=== PATIENT | female | born 1945 | race Caucasian/White ===

== ENCOUNTER → 2018-01-08 07:30 | Outpatient (CLI) | payer MEDICARE, SELFPAY ==
[2018-01-08 08:33] LABS: Add Manual Diff / Slide Review NO; Basophils Percent Auto 0.6 % (0-2); Eosinophils Percent Auto 3.3 % (2-4); Hematocrit 39.6 % (36-46); Hemoglobin 13.4 g/dL (12.0-16.0); Lymphocytes Percent Auto 40.3 % (25-40); Mean Corpuscular HGB Conc 33.9 % (30-36); Mean Corpuscular Hemoglobin 30.1 PG (26-34); Mean Corpuscular Volume 88.9 fL (80-100); Monocytes Percent Auto 9.7 % (3-14); Neutrophils Absolute Auto 2000 /uL (3000-5900); Neutrophils Percent Auto 46.1 % (50-75); Platelet Count 293 X10^3/uL (150-400); Red Blood Cell Count 4.46 X10^6/uL (4.0-5.2); White Blood Cell Count 4.3 X10^3/uL (4.5-11.0)
[2018-01-08 08:44] LABS: Alanine Aminotransferase 27 IU/L (9-52); Albumin 4.1 g/dL (3.5-5.0); Albumin Globulin Ratio 1.5 (1.0-2.8); Alkaline Phosphatase 69 U/L (38-126); Aspartate Aminotransferase 23 IU/L (14-36); BUN Creatinine Ratio 18.6 (6-22); Bilirubin Total 1.2 mg/dL (0.2-1.3); Blood Urea Nitrogen 13 mg/dL (7-17); Calcium 9.3 mg/dL (8.4-10.2); Carbon Dioxide 28 mmol/L (22-32); Chloride 105 mmol/L (98-107); Cholesterol 161 mg/dL (140-199); Estimated Glomerular Filt Rate > 60.0 mL/min (>60); Globulin 2.8 g/dL (1.7-4.1); Glucose 83 mg/dL (80-110); HDL Cholesterol 66 mg/dL (40-60); HEMOLYSIS < 15 (0-50); LDL Cholesterol Calculated 81 mg/dL (<100); Potassium 3.9 mmol/L (3.4-5.1); Sodium 143 mmol/L (137-145); Total Protein 6.9 g/dL (6.3-8.2); Triglycerides 72 mg/dL (35-150)
[2018-01-08 08:54] LABS: Hemoglobin A1C% w Est Avg Glu 5.3 % (4.0-6.0)
[2018-01-08 09:46] LABS: TSH w/ Reflex to FT4 2.91 uIU/mL (0.47-4.68)
== END ==
PROVIDERS: PCP Family Medicine; Visit Provider Family Medicine
DX: I10 Essential (primary) hypertension (principal); E78.2 Mixed hyperlipidemia; E03.9 Hypothyroidism, unspecified
CPT/HCPCS: 36415; 80053; 80061; 83036; 84443; 85025

== ENCOUNTER 2018-05-01 08:33 | Day surgery (SDC) | payer MEDICARE, SELFPAY ==
[2018-05-01 09:17] VITALS: BP 107/74; PULSE 89; RESP 15; TEMP 36.4; O2SAT 98; BMI 32.1
[2018-05-01] MEDS: SODIUM CHLORIDE 0.9% 1,000 ML 200 ML IV (09:23)
--- NOTE | 2018-05-01 10:29 | PM.HP.1 ---
History of Present Illness Date Patient Seen: 05/01/18 Time Patient Seen: 10:30 Chief complaint: colonoscopy 11446 Narrative: Very pleasant 72-year-old lady who is remarkably healthy. She presents today for screening colonoscopy. She denies any problems or symptoms related to the function of her GI tract. She reports her last colonoscopy was 10 years ago. Patient History Medical History Tinnitus (Chronic ~2007) Chicken pox (Resolved ~1948) Measles (Resolved ~1953) Surgical History Anesthesia (Resolved) History of breast implant (Resolved ~1981) History of breast implant (Resolved ~2000) History of mandibular surgery (Resolved ~1978) Status post skin graft (~1949) Family & Social History Family History: Reviewed 05/01/18 by Daisy Loving MD Social History: household members spouse Tobacco & Substance use: Smoking Status Never smoker Meds Home Medications Medication Instructions Recorded Confirmed Type ASPIRIN (Aspirin) 81 mg PO Q DAY #0 08/01/11 05/01/18 History zoster vaccine live (PF) [Zostavax 0.5 ml SQ ONCE #0.5 ml 02/12/17 05/01/18 Rx (PF)] simvastatin 20 mg tablet 20 mg PO Q DAY #90 tab 01/15/18 05/01/18 Rx varicella-zoster glycoE vacc-[id number] 0.5 ml IM ONCE #1 each 01/15/18 05/01/18 Rx adj(PF) 50 mcg/0.5 mL IM susp, kit Allergies Allergy/AdvReac Type Severity Reaction Status Date / Time No Known Drug Allergies Allergy Verified 05/01/18 09:24 Review of Systems Review of Systems All systems reviewed & are unremarkable except as noted in HPI and below Exam Vital Signs (past 8 hours): - 05/01/18 09:17 Temperature 97.5 F L Pulse Rate 89 Respiratory Rate 15 Blood Pressure 107/74 Pulse Oximetry 98 Oxygen Delivery Method Room Air Narrative Exam Narrative: Rebecca 72-year-old lady in no obvious distress HEENT: Normocephalic and atraumatic, pupils equal round reactive to light accommodation with anicteric sclera Lungs: Clear to auscultation bilaterally Heart: Regular rate and rhythm Abdomen: Soft, nontender, active bowel sounds Extremities: Warm well perfused Assessment & Plan Plan: Assessment/Plan Narrative: Healthy 72-year-old lady here for screening colonoscopy. We discussed the risks and benefits of the procedure and she has expressed a desire to complete it today.
[2018-05-01] MEDS: MIDAZOLAM 5 MG/5 ML VIAL IV (10:39)
[2018-05-01] MEDS: fentaNYL 250 MCG/5 ML INJ IV (10:40)
--- NOTE | 2018-05-01 10:47 | PM.OP.1 ---
Operative Date/Time/Diagnoses Date of procedure: 05/01/18 Time of procedure: 10:47 Pre-op diagnosis: Screening Post-op diagnosis: same Procedure & Clinicians Procedure: Colonoscopy to the cecum Same procedure as scheduled: Yes Indications: Last colonoscopy 10 years ago Surgeon: Daisy Loving Click Yes if Unassisted: Yes Anesthesia Type: Sedation (Versed 6 mg; fentanyl 200 mcg) Operative Notes Findings: 1. Adequate prep 2. Huerta diverticular disease with large and small pockets throughout the colon. Relative sparing of the proximal right colon. 3. Scarring around diverticuli in the mid transverse colon consistent with a prior episode of inflammation 4. Mucosal prolapse of the rectum 5. Grade 2 internal hemorrhoids 6. Decreased anal tone 7. No polyps or mass lesions Closure Type: not applicable Specimen(s): none sent Procedure in detail: After obtaining informed consent, the patient was brought to the GI suite and placed in the left lateral decubitus position on the examination table. After placement of appropriate monitors, the patient was given incremental doses of Versed and Fentanyl until an appropriate level of sedation was achieved. A time out was held per SCOAP protocol. A digital rectal examination was performed and did not reveal any masses or obstructing lesions. The colonoscope was gently passed into the patient's anus and the entire colon navigated to the level of the cecum with minimal difficulty. Once in the cecum, the scope was withdrawn being sure to go before and beyond all mucosal folds and prominences and get an excellent examination. The findings are noted above. At the level of the rectal vault, the scope was retroflexed and the internal anal canal was examined. The scope was straightened and air aspirated from the colon. The instrument was removed from the patient's body and the procedure was concluded. The patient was allowed to awaken from sedation without difficulty and taken to the post-anesthesia care unit in good condition. Total sedation time 17 min Total withdrawal time 8 min 20 sec Complications: none Condition: stable Disposition: PACU Plan for aftercare: 1. Discharge to home 2. Plan for next colonoscopy in 10 years 3. Recommend high-fiber diet to prevent straining
[2018-05-01 10:51] VITALS: BP 94/63; PULSE 69; RESP 11; TEMP 36.7; O2SAT 92
[2018-05-01 10:56] VITALS: BP 101/69; PULSE 79; RESP 17; O2SAT 94
[2018-05-01 11:01] VITALS: BP 101/69; PULSE 74; RESP 14; O2SAT 95
[2018-05-01 11:05] VITALS: BP 107/73; PULSE 69; RESP 14; TEMP 36.3; O2SAT 100
--- NOTE | 2018-05-01 11:11 | SUR.PHASEI ---
Op report printed and given to pt per Dr. Loving request.
[2018-05-01 11:15] VITALS: BP 107/80; PULSE 70; RESP 16; TEMP 36.3; O2SAT 96
== END 2018-05-01 11:26 | disposition home or self-care (01) ==
PROVIDERS: Family Provider Family Medicine; PCP Family Medicine; Visit Provider Surgery
PROC: 0DJD8ZZ Inspection of Lower Intestinal Tract, Via Natural or Artificial Opening Endoscopic (ICD-10-PCS; CPT 45378; principal; 2018-05-01 09:45)
DX: Z12.11 Encounter for screening for malignant neoplasm of colon (principal); K57.30 Diverticulosis of large intestine without perforation or abscess without bleeding; K64.1 Second degree hemorrhoids
CPT/HCPCS: 45378; 99152; J2250; J3010

== ENCOUNTER → 2018-08-12 09:22 | Outpatient (CLI) | payer MEDICARE, SELFPAY | PROVIDERS: PCP Family Medicine; Visit Provider Family Medicine | DX: Z12.31 Encounter for screening mammogram for malignant neoplasm of breast (principal); Z53.9 Procedure and treatment not carried out, unspecified reason ==

== ENCOUNTER → 2018-09-29 13:37 | Outpatient (CLI) | payer MEDICARE, SELFPAY ==
--- NOTE | 2018-09-29 | DI.MG.S_ITS ---
BILATERAL DIGITAL SCREENING MAMMOGRAM 3D/2D WITH CAD WITH AUGMENTATION: 09/29/2018 CLINICAL: Routine screening. Comparison is made to exams dated: 06/28/2017 mammogram, 06/15/2016 mammogram, and 04/28/2015 mammogram - [facility]. There are scattered fibroglandular elements in both breasts. Current study was also evaluated with a Computer Aided Detection (CAD) system. Right breast implant is stable. There are benign post operative findings in the right breast. No significant masses, calcifications, or other findings are seen in either breast. There has been no significant interval change. IMPRESSION: There is no mammographic evidence of malignancy. A 1 year screening mammogram is recommended. This exam was interpreted at Station ID: [id number]. NOTE: For mammograms, a report in lay terms will be sent to the patient. Approximately 15% of breast malignancies will not be visualized mammographically. In the management of a palpable breast mass, a negative mammogram must not discourage biopsy of a clinically suspicious lesion. Electronically Signed By: Logan bates/marcela:09/29/2018 21:52:32 letter sent: Normal Exam ACR BI-RADS Category 2: Benign Finding(s) 3342F
== END ==
PROVIDERS: PCP Family Medicine; Visit Provider Family Medicine
DX: Z12.31 Encounter for screening mammogram for malignant neoplasm of breast (principal)
CPT/HCPCS: 77063; 77067

== ENCOUNTER → 2019-02-24 08:32 | Outpatient (CLI) | payer MEDICARE, SELFPAY ==
[2019-02-24 09:07] LABS: Add Manual Diff / Slide Review NO; Basophils Absolute Auto 0 /uL (0-100); Basophils Percent Auto 0.7 % (0-2); Eosinophils Absolute Auto 200 /uL (0-450); Eosinophils Percent Auto 3.7 % (2-4); Hemoglobin 13.5 g/dL (12.0-16.0); Lymphocytes Absolute Auto 1600 /uL (1100-4500); Lymphocytes Percent Auto 36.5 % (25-40); Mean Corpuscular HGB Conc 33.7 % (30-36); Mean Corpuscular Hemoglobin 29.8 PG (26-34); Mean Corpuscular Volume 88.3 fL (80-100); Monocytes Absolute Auto 400 /uL (0-900); Monocytes Percent Auto 8.9 % (3-14); Neutrophils Absolute Auto 2200 /uL (1500-7000); Neutrophils Percent Auto 50.2 % (50-75); Platelet Count 303 X10^3/uL (150-400); Red Blood Cell Count 4.53 X10^6/uL (4.0-5.2); White Blood Cell Count 4.4 X10^3/uL (4.5-11.0)
[2019-02-24 09:43] LABS: Alanine Aminotransferase 18 IU/L (9-52); Albumin 3.9 g/dL (3.5-5.0); Albumin Globulin Ratio 1.4 (1.0-2.8); Alkaline Phosphatase 67 U/L (38-126); Aspartate Aminotransferase 23 IU/L (14-36); Bilirubin Total 1.1 mg/dL (0.2-1.3); Blood Urea Nitrogen 14 mg/dL (7-17); Calcium 9.5 mg/dL (8.4-10.2); Carbon Dioxide 29 mmol/L (22-32); Chloride 105 mmol/L (98-107); Cholesterol 174 mg/dL (140-199); Estimated Glomerular Filt Rate > 60.0 mL/min (>60); Globulin 2.8 g/dL (1.7-4.1); Glucose 84 mg/dL (80-110); HDL Cholesterol 72 mg/dL (40-60); HEMOLYSIS < 15 (0-50); LDL Cholesterol Calculated 78 mg/dL (<100); Potassium 4.4 mmol/L (3.4-5.1); Sodium 139 mmol/L (137-145); Total Protein 6.7 g/dL (6.3-8.2); Triglycerides 120 mg/dL (35-150)
[2019-02-24 09:57] LABS: Thyroid Stimulating Hormone 3.35 uIU/mL (0.47-4.68)
== END ==
PROVIDERS: PCP Family Medicine; Visit Provider Family Medicine
DX: E78.2 Mixed hyperlipidemia (principal); Z13.1 Encounter for screening for diabetes mellitus; Z13.6 Encounter for screening for cardiovascular disorders
CPT/HCPCS: 36415; 80053; 80061; 84443; 85025

== ENCOUNTER → 2020-01-13 08:40 | Outpatient (CLI) | payer MEDICARE, SELFPAY ==
--- NOTE | 2020-01-13 | DI.MG.S_ITS ---
BILATERAL DIGITAL SCREENING MAMMOGRAM 3D/2D WITH CAD WITH AUGMENTATION: 01/13/2020 CLINICAL: Routine screening. Comparison is made to exams dated: 09/29/2018 mammogram, 06/28/2017 mammogram, 06/15/2016 mammogram, and 04/28/2015 mammogram - [facility]. There are scattered fibroglandular elements in both breasts. Current study was also evaluated with a Computer Aided Detection (CAD) system. Right breast implant is stable. No significant masses, calcifications, or other findings are seen in either breast. There has been no significant interval change. IMPRESSION: NEGATIVE There is no mammographic evidence of malignancy. A 1 year screening mammogram is recommended. This exam was interpreted at Station ID: [id number]. NOTE: For mammograms, a report in lay terms will be sent to the patient. Approximately 15% of breast malignancies will not be visualized mammographically. In the management of a palpable breast mass, a negative mammogram must not discourage biopsy of a clinically suspicious lesion. Electronically Signed By: Griselda mondragon/marcela:01/14/2020 14:11:55 letter sent: Normal Exam ACR BI-RADS Category 1: Negative [id number]
== END ==
PROVIDERS: PCP Family Medicine; Referring Provider Family Medicine; Visit Provider Family Medicine
DX: Z12.31 Encounter for screening mammogram for malignant neoplasm of breast (principal)
CPT/HCPCS: 77063; 77067

== ENCOUNTER → 2020-04-05 07:33 | Outpatient (CLI) | payer MEDICARE, SELFPAY ==
[2020-04-05 08:35] LABS: Add Manual Diff / Slide Review NO; Basophils Absolute Auto 0 /uL (0-100); Basophils Percent Auto 0.5 % (0-2); Eosinophils Absolute Auto 200 /uL (0-450); Hematocrit 39.3 % (36-46); Hemoglobin 12.7 g/dL (12.0-16.0); Lymphocytes Absolute Auto 1800 /uL (1100-4500); Lymphocytes Percent Auto 35.7 % (25-40); Mean Corpuscular HGB Conc 32.4 % (30-36); Mean Corpuscular Hemoglobin 29.1 PG (26-34); Mean Corpuscular Volume 89.9 fL (80-100); Monocytes Absolute Auto 500 /uL (0-900); Neutrophils Absolute Auto 2600 /uL (1500-7000); Neutrophils Percent Auto 50.8 % (50-75); Platelet Count 311 X10^3/uL (150-400); Red Blood Cell Count 4.38 X10^6/uL (4.0-5.2); Red Cell Distribution Width 14.2 % (11.6-14.8); White Blood Cell Count 5.1 X10^3/uL (4.5-11.0)
[2020-04-05 09:03] LABS: Alanine Aminotransferase 20 IU/L (<35); Albumin 3.7 g/dL (3.5-5.0); Albumin Globulin Ratio 1.4 (1.0-2.8); Alkaline Phosphatase 74 U/L (38-126); Aspartate Aminotransferase 23 IU/L (14-36); BUN Creatinine Ratio 17.3 (6-22); Blood Urea Nitrogen 13 mg/dL (7-17); Calcium 9.5 mg/dL (8.4-10.2); Carbon Dioxide 28 mmol/L (22-32); Chloride 107 mmol/L (98-107); Cholesterol 195 mg/dL (140-199); Estimated Glomerular Filt Rate > 60.0 mL/min (>60); Globulin 2.7 g/dL (1.7-4.1); Glucose 84 mg/dL (80-110); HDL Cholesterol 79 mg/dL (40-60); HEMOLYSIS < 15 (0-50); LDL Cholesterol Calculated 97 mg/dL (<100); Potassium 4.3 mmol/L (3.4-5.1); Sodium 141 mmol/L (137-145); Total Protein 6.4 g/dL (6.3-8.2); Triglycerides 96 mg/dL (35-150)
[2020-04-05 09:30] LABS: Thyroid Stimulating Hormone 4.46 uIU/mL (0.47-4.68)
== END ==
PROVIDERS: PCP Family Medicine; Referring Provider Family Medicine; Visit Provider Family Medicine
DX: E78.2 Mixed hyperlipidemia (principal); Z13.29 Encounter for screening for other suspected endocrine disorder; Z68.32 Body mass index [BMI] 32.0-32.9, adult
CPT/HCPCS: 36415; 80053; 80061; 84443; 85025

== ENCOUNTER → 2020-04-22 13:47 | Outpatient (CLI) | payer MEDICARE, SELFPAY | PROVIDERS: PCP Student in an Organized Health Care Education/Training Program; Referring Provider Student in an Organized Health Care Education/Training Program; Visit Provider Student in an Organized Health Care Education/Training Program | DX: Z13.820 Encounter for screening for osteoporosis (principal); M85.852 Other specified disorders of bone density and structure, left thigh; Z78.0 Asymptomatic menopausal state; Z91.89 Other specified personal risk factors, not elsewhere classified; Z82.62 Family history of osteoporosis | CPT/HCPCS: 77080 ==

== ENCOUNTER → 2021-02-07 10:10 | Outpatient (CLI) | payer MEDICARE, SELFPAY ==
--- NOTE | 2021-02-07 | DI.MG.S_ITS ---
BILATERAL DIGITAL SCREENING MAMMOGRAM 3D/2D WITH CAD WITH AUGMENTATION: 02/07/2021 CLINICAL: Routine screening. Comparison is made to exams dated: 01/13/2020 mammogram, 09/29/2018 mammogram, and 06/28/2017 mammogram - [facility]. There are scattered fibroglandular elements in both breasts. Current study was also evaluated with a Computer Aided Detection (CAD) system. Right breast implant is stable. There are benign calcifications in the left breast. No significant masses, calcifications, or other findings are seen in either breast. There has been no significant interval change. IMPRESSION: BENIGN There is no mammographic evidence of malignancy. A 1 year screening mammogram is recommended. This exam was interpreted at Station ID: [id number]. NOTE: For mammograms, a report in lay terms will be sent to the patient. Approximately 15% of breast malignancies will not be visualized mammographically. In the management of a palpable breast mass, a negative mammogram must not discourage biopsy of a clinically suspicious lesion. Electronically Signed By: Ravi riley/marcela:02/07/2021 10:46:38 letter sent: Normal Exam ACR BI-RADS Category 2: Benign Finding(s) 3342F
== END ==
PROVIDERS: PCP Student in an Organized Health Care Education/Training Program; Referring Provider Student in an Organized Health Care Education/Training Program; Visit Provider Student in an Organized Health Care Education/Training Program
DX: Z12.31 Encounter for screening mammogram for malignant neoplasm of breast (principal)
CPT/HCPCS: 77063; 77067

== ENCOUNTER → 2022-04-17 10:36 | Outpatient (CLI) | payer MEDICARE, SELFPAY ==
--- NOTE | 2022-04-17 | DI.MG.S_ITS ---
BILATERAL DIGITAL SCREENING MAMMOGRAM 3D/2D WITH CAD WITH AUGMENTATION: 04/17/2022 CLINICAL: Routine screening. Comparison is made to exams dated: 02/07/2021 mammogram, 01/13/2020 mammogram, 09/29/2018 mammogram, and 06/28/2017 mammogram - [facility]. There are scattered areas of fibroglandular density in both breasts (category b / 25%-50% glandular tissue). Current study was also evaluated with a Computer Aided Detection (CAD) system. Right breast implant is stable and intact. There are benign calcifications in the left breast. No significant masses, calcifications, or other findings are seen in either breast. There has been no significant interval change. IMPRESSION: BENIGN There is no mammographic evidence of malignancy. A 1 year screening mammogram is recommended. Based on the Tyrer Cuzick model (a risk assessment model) the patient's lifetime risk is 4.6% and her 10 year risk is 4.6%. According to the ACR, ACS, and NCCN guidelines, an annual breast MRI exam along with mammogram is recommended if the patient's lifetime risk is 20% or greater. This exam was interpreted at Station ID: [id number]. NOTE: For mammograms, a report in lay terms will be sent to the patient. Approximately 15% of breast malignancies will not be visualized mammographically. In the management of a palpable breast mass, a negative mammogram must not discourage biopsy of a clinically suspicious lesion. Electronically Signed By: Michele modi/marcela:04/17/2022 13:43:01 letter sent: Normal Exam ACR BI-RADS Category 2: Benign Finding(s) 3342F
== END ==
PROVIDERS: PCP Student in an Organized Health Care Education/Training Program; Referring Provider Student in an Organized Health Care Education/Training Program; Visit Provider Student in an Organized Health Care Education/Training Program
DX: Z12.31 Encounter for screening mammogram for malignant neoplasm of breast (principal)
CPT/HCPCS: 77063; 77067

== ENCOUNTER 2022-09-19 12:46 | Emergency (ER) | payer MEDICARE, SELFPAY ==
[2022-09-19 12:45] VITALS: BP 137/88; PULSE 72; RESP 18; TEMP 36.6; O2SAT 99; BMI 25.9
[2022-09-19 13:00] VITALS: PULSE 72; RESP 22
[2022-09-19 13:04] VITALS: BP 137/88; PULSE 68; RESP 24; O2SAT 98
--- NOTE | 2022-09-19 13:09 | DI.RAD.S_ITS ---
PROCEDURE: XR CHEST 1V INDICATIONS: chest pain TECHNIQUE: One view of the chest was acquired. COMPARISON: None. FINDINGS: Surgical changes and devices: None. Lungs and pleura: Lungs are clear. No pleural effusions or pneumothorax. Mediastinum: Mediastinal contours appear normal. Heart size is normal. Bones and chest wall: No suspicious bony lesions. Overlying soft tissues appear unremarkable. IMPRESSION: No acute cardiopulmonary findings. Dictated by: Elizabet Aguilar M.D. on 09/19/2022 at 13:51 Approved by: Elizabet Aguilar M.D. on 09/19/2022 at 13:51
[2022-09-19 13:18] LABS: Add Manual Diff / Slide Review NO; Basophils Absolute Auto 0 /uL (0-100); Basophils Percent Auto 0.5 % (0-2); Eosinophils Absolute Auto 100 /uL (0-450); Eosinophils Percent Auto 1.9 % (2-4); Hematocrit 39.7 % (36-46); Hemoglobin 13.2 g/dL (12.0-16.0); Lymphocytes Absolute Auto 2000 /uL (1100-4500); Lymphocytes Percent Auto 32.5 % (25-40); Mean Corpuscular HGB Conc 33.4 % (30-36); Mean Corpuscular Volume 89.8 fL (80-100); Monocytes Absolute Auto 500 /uL (0-900); Neutrophils Absolute Auto 3400 /uL (1500-7000); Neutrophils Percent Auto 56.1 % (50-75); Platelet Count 327 X10^3/uL (150-400); Red Blood Cell Count 4.42 X10^6/uL (4.0-5.2); Red Cell Distribution Width 13.8 % (11.6-14.8); White Blood Cell Count 6.1 X10^3/uL (4.5-11.0)
[2022-09-19 13:21] LABS: PTT Partial Thromboplastin Tim 33 SECONDS (26-36)
[2022-09-19 13:22] LABS: Alanine Aminotransferase 26 IU/L (<35); Albumin 4.4 g/dL (3.5-5.0); Albumin Globulin Ratio 1.3 (1.0-2.8); Alkaline Phosphatase 63 U/L (38-126); Aspartate Aminotransferase 29 IU/L (14-36); Bilirubin Total 1.1 mg/dL (0.2-1.3); Blood Urea Nitrogen 13 mg/dL (7-17); Calcium 9.4 mg/dL (8.4-10.2); Carbon Dioxide 31 mmol/L (22-32); Chloride 101 mmol/L (98-107); Creatine Kinase 56 U/L (30-135); Estimated Glomerular Filt Rate > 60 mL/min (>60); Globulin 3.3 g/dL (1.7-4.1); Glucose 97 mg/dL (80-110); HEMOLYSIS < 15 (0-50); Lipase 95 U/L (23-300); Magnesium 2.2 mg/dL (1.6-2.3); Sodium 138 mmol/L (137-145); Total Protein 7.7 g/dL (6.3-8.2)
[2022-09-19 13:30] VITALS: BP 127/73; PULSE 62; RESP 22; O2SAT 97
--- NOTE | 2022-09-19 13:32 | ED.CHESTPAIN ---
HPI - Chest Pain General Chief Complaint: Chest Pain Stated Complaint: chest pain on and off x 3 weeks Time Seen by Provider: 09/19/22 13:32 Source: patient and EMS Mode of arrival: EMS Limitations: no limitations Limitations: no limitations History of Present Illness HPI narrative: This 76-year-old lady presents with an episode of left anterior chest pain about 11:20 this morning. She describes a very small focus of pain that did not radiate. There is no associated dyspnea, diaphoresis, or palpitations. She is currently pain-free. Pain resolved after about 20 minutes. She is no history of CAD, no prior history of angina type chest pain. She has hyperlipidemia, no hypertension, diabetes or history tobacco use. She is under lot of stress. Her developed very severe pneumonia over 2 years ago while vacationing in [place]. He was intubated for several months. He is currently home, nearly immobile. A caregiver had to leave suddenly due to an emergent this morning. The patient is alone caring for her quite a bit. She delayed her trip to the ER, waiting on a neighbor to be with her . She is no recent illness. She is no head cold, congestion, headache or sore throat. She is no cough or dyspnea. She is no fever. Related Data Previous Rx's Medication Instructions Recorded simvastatin 20 mg tablet 20 mg PO DAILY #90 tabs 05/15/22 Allergies Allergy/AdvReac Type Severity Reaction Status Date / Time No Known Drug Allergies Allergy Verified 05/01/22 10:24 Review of Systems Review of Systems ROS Unobtainable: All systems reviewed & are unremarkable except as noted in HPI and below Patient History Medical History (Updated 09/19/22 @ 13:49 by Cristi Bro MD) Chicken pox (~194) Closed right ankle fracture Hyperlipidemia Measles (~1953) Tinnitus (~2007) Surgical History Anesthesia History of breast implant (~1981) History of breast implant (~2000) History of mandibular surgery (~1978) Status post skin graft (~1949) Family History Brother Age: 76 High cholesterol Brother Hypertension Grandmother Age: 91 Congestive heart failure Heart disease Sister Age: 70 High cholesterol Stroke Fibromyalgia Mother No problems noted. Social History household members: spouse Smoking Status: Never smoker alcohol intake: current substance use type: does not use Smoking Status: Never smoker Substance Use Type: does not use Exam Initial Vital Signs Initial Vital Signs: Vital Signs Temperature 97.9 F 09/19/22 12:45 Pulse Rate 72 09/19/22 12:45 Respiratory Rate 18 09/19/22 12:45 Blood Pressure 137/88 09/19/22 12:45 Pulse Oximetry 99 09/19/22 12:45 Oxygen Delivery Method Room Air 09/19/22 12:45 Const General: cooperative, healthy appearing, comfortable, well developed, well groomed and No in distress Orientation: Orientation (normal) [facility] Head: normal to inspection, normocephalic and atraumatic Face and sinus: normal facial exam Mouth: oral mucosae normal Throat: posterior oropharynx normal Eyes General: Yes appearance normal, both eyes and all related structures Neck Neck: full ROM, trachea midline and No lymphadenopathy Thyroid: thyroid normal Chest Chest: normal inspection of the chest (No palpable tenderness) Resp Auscultation: clear to auscultation bilaterally Cardio Palpation: normal PMI Rate: regular rate Rhythm: regular rhythm Heart Sounds: S1 normal, S2 normal and no murmurs GI Inspection: normal to inspection Palpation: soft, No mass and No tender Auscultation: normal bowel sounds Back/Spine/Pelvis Back: normal to inspection Skin General: no rashes or lesions noted Neuro General: patient alert, patient awake, patient oriented x3 and no focal motor deficits Extrem General: normal to inspection, full ROM, no pedal edema and no calf tenderness Psych Mental Status: mental status grossly normal Course Course Course Narrative: She is pain-free since arrival. She believes stress was reason for pain, she may be correct. She is started on baby aspirin. Her workup is benign. I am suggesting she see her primary care doctor about a stress test. Orders Ordered: ED Orders 09/19/22 13:09 XR chest 1V Stat COVID19 -Nasal RAPID/Pre-Proc Stat EKG-12 Lead Stat 09/19/22 13:13 Complete Blood Count AUTO DIFF Stat Comprehensive Metabolic Panel Stat Lipase Stat Magnesium Stat Partial Thromboplastin Time Stat Prothrombin Time INR Stat Troponin & CK Cardiac Panel Stat Discontinued Medications Aspirin (Aspirin 81 Mg Chew Tab) 324 mg PO NOW ONE Stop: 09/19/22 13:10 Vital Signs Vital signs: Vital Signs - 8 hr 09/19/22 12:45 09/19/22 13:00 09/19/22 13:04 Temperature 97.9 F Pulse Rate 72 72 68 Respiratory Rate 18 22 24 Blood Pressure 137/88 Pulse Oximetry 99 98 Oxygen Delivery Method Room Air Room Air 09/19/22 13:04 Temperature Pulse Rate Respiratory Rate Blood Pressure 137/88 Pulse Oximetry Oxygen Delivery Method MDM - Chest Pain Lab Data 09/19/22 13:13 09/19/22 13:13 Labs: Lab Results 09/19/22 09/19/22 09/19/22 Range/Units 13:13 13:13 13:13 WBC 6.1 (4.5-11.0) X10^3/uL RBC 4.42 (4.0-5.2) X10^6/uL Hgb 13.2 (12.0-16.0) g/dL Hct 39.7 (36-46) % MCV 89.8 (80-100) fL MCH 30.0 (26-34) PG MCHC 33.4 (30-36) % RDW 13.8 (11.6-14.8) % Plt Count 327 (150-400) X10^3/uL Neut % (Auto) 56.1 (50-75) % Lymph % (Auto) 32.5 (25-40) % [place] % (Auto) 9.0 (3-14) % Eos % (Auto) 1.9 L (2-4) % Baso % (Auto) 0.5 (0-2) % Neut # (Auto) 3400 (8184-6782) /uL Lymph # (Auto) 2000 (6057-4545) /uL [place] # (Auto) 500 (0-900) /uL Eos # (Auto) 100 (0-450) /uL Baso # (Auto) 0 (0-100) /uL PT 11.0 (10.1-12.7) SECONDS INR 1.0 (0.9-1.3) APTT 33 (26-36) SECONDS Sodium 138 (137-145) mmol/L Potassium 4.0 (3.4-5.1) mmol/L Chloride 101 (98-107) mmol/L Carbon Dioxide 31 (22-32) mmol/L BUN 13 (7-17) mg/dL Creatinine 0.65 (0.52-1.04) mg/dL Estimated GFR > 60 (>60) mL/min BUN/Creatinine Ratio 20.0 (6-22) Glucose 97 (80-110) mg/dL Calcium 9.4 (8.4-10.2) mg/dL Magnesium 2.2 (1.6-2.3) mg/dL Total Bilirubin 1.1 (0.2-1.3) mg/dL AST 29 (14-36) IU/L ALT 26 (<35) IU/L Alkaline Phosphatase 63 (38-126) U/L Total Creatine Kinase 56 (30-135) U/L CK-MB (CK-2) TNP CK-MB (CK-2) Rel Index TNP Troponin I < 0.012 (0.01-0.034) ng/mL Total Protein 7.7 (6.3-8.2) g/dL Albumin 4.4 (3.5-5.0) g/dL Globulin 3.3 (1.7-4.1) g/dL Albumin/Globulin Ratio 1.3 (1.0-2.8) Lipase 95 (23-300) U/L Imaging Data Chest x-ray: Radiologist's Impression: No acute findings. ECG Data Attestation: I personally reviewed and interpreted this ECG as follows: (Normal sinus rhythm rate 62 beats per minute. Normal intervals. No ectopy. No acute ST T wave changes.) Discharge Plan Departure Patient Disposition: Home Clinical Impression: Atypical chest pain Instructions: DI for Atypical Chest Pain Activity Restrictions/Additional Instructions: There is a good chance that your right, your discomfort is associated with stress. However, I recommend you take baby aspirin 1 daily. Talk to your PCM. Our evaluation is very normal, but I would suggest a nuclear stress test to be absolutely certain her heart is okay. Return here if you have increased/worsening pain. Prescriptions: No Action simvastatin 20 mg tablet 20 mg PO DAILY Qty: 90 3RF Referrals: Jae Sahu MD [Primary Care Provider] - Stand Alone Forms: Patient Portal/API
[2022-09-19 13:34] LABS: Troponin I < 0.012 ng/mL (0.01-0.034)
[2022-09-19] MEDS: ASPIRIN 81 MG CHEW TAB 324 MG PO (13:40)
== END 2022-09-19 14:05 | disposition home or self-care (01) ==
PROVIDERS: Emergency Provider Emergency Medicine; PCP Student in an Organized Health Care Education/Training Program
DX: R07.89 Other chest pain (principal)
CPT/HCPCS: 36415; 71045; 80053; 82550; 83690; 83735; 84484; 85025; 85610; 85730; 93005; 99284

== ENCOUNTER → 2022-11-02 10:07 | Outpatient (CLI) | payer MEDICARE, SELFPAY ==
--- NOTE | 2022-11-02 11:08 | DI.DEXA.S_ITS ---
Bone Density Report Name: NATALIIA KINGSLEY Age: 77 Sex: Female Ethnicity: White Date of : 1945 Indication: postmenopausal; screening for osteoporosis; Referring Provider: JF HUNTER Study: Bone densitometry was performed. Exam Date: November 02, 2022 Accession number: [id number] Bone Density: Region BMD T-score Z-score Classification AP Spine(L1, L4) 1.054 0.2 2.6 Normal Femoral Neck (Left) 0.606 -2.2 -0.1 Osteopenia Total Hip (Left) 0.793 -1.2 0.6 Osteopenia Femoral Neck (Right) 0.611 -2.1 0.0 Osteopenia Total Hip (Right) 0.770 -1.4 0.4 Osteopenia Total Hip Mean 0.781 -1.3 0.5 Osteopenia World Health Organization criteria for BMD impression classify patients as: Normal (T-score at or above -1.0), Osteopenia (T-score between -1.0 and -2.5), or Osteoporosis (T-score at or below -2.5). 10-year Fracture Risk(1): Major Osteoporotic Fracture 15% Hip Fracture 4.1% Reported Risk Factors: [place] (), Neck BMD=0.606, BMI=26.1 (1) FRAX(R) Version 3.08. Fracture probability calculated for an untreated patient. Fracture probability may be lower if the patient has received treatment. Previous Exams: -- Region Exam Age BMD T-score BMD Change BMD Change Date g/cm2 vs Baseline vs Previous -- AP Spine (L1,L4) 11/02/2022 77 1.054 0.2 -0.087 (-7.6%)# -0.087 (-7.6%)# 04/22/2020 74 1.141 0.9 Total Hip(Left) 11/02/2022 77 0.793 -1.2 -0.090 (-10.2%)# -0.090 (-10.2%)# 04/22/2020 74 0.882 -0.5 Total Hip(Right) 11/02/2022 77 0.770 -1.4 -0.120 (-13.5%)# -0.120 (-13.5%)# 04/22/2020 74 0.890 -0.4 -- *Denotes significance at 95% confidence level, LSC for AP Spine = 0.022 g/cm2, LSC for Total Hip = 0.027 g/cm2 # Denotes dissimilar scan types or analysis methods Impression: The patient has low bone mass, based on the Left Femoral Neck T-score. The patient has an estimated ten-year risk of hip fracture of 4.1% and an estimated ten-year risk of major fracture of 15%, based on the WHO FRAX algorithm. No significant bone loss was observed. Discussion: BONE DENSITY IS LOW AT ONE OR MORE SKELETAL SITES. THE PATIENT'S BMD AND CLINICAL RISK FACTORS CONTRIBUTE TO THIS PATIENT'S INCREASED RISK OF FRACTURE. This patient's lowest T-score is low at one or more skeletal sites. It meets the World Health Organization's (WHO) criteria for ?low bone mass? (T-score between -1.0 and -2.5). The patient's 10-year risk of hip fracture as calculated by FRAX exceeds the threshold where pharmacological therapy is recommended by the National Osteoporosis Foundation (NOF). However, all treatment decisions require clinical judgment and consideration of individual patient factors, including patient preferences, comorbidities, previous drug use, risk factors not captured in the FRAX model (e.g., frailty, falls, vitamin D deficiency, increased bone turnover, interval significant decline in bone density) and possible under or overestimation of fracture risk by FRAX. The patient should follow a healthful lifestyle (good nutrition with adequate calcium and vitamin D, and appropriate weight-bearing exercise). Follow-Up: Consider a repeat BMD and Vertebral Fracture Assessment (VFA) exam in 2 years or sooner if medically necessary, to reassess this patient's status. Reported by: SARAI GAFFNEY M.D. on 11/02/2022 11:24:00 AM.
--- NOTE | 2022-11-02 18:17 | DI.NM.S_ITS ---
DATE OF SERVICE: 11/02/2022 PROCEDURE: Exercise perfusion study INDICATIONS: Chest pain, dizziness. RADIOPHARMACEUTICAL: 24.8 millicurie technetium-99m Myoview IV was injected at stress and 11.7 millicurie technetium-99m Myoview IV was injected at rest. CARDIAC STRESS: The patient underwent exercise perfusion study under the supervision of an attending staff using standard Jayme protocol. She walked on Jayme protocol for 7 minutes, achieved 97% of target heart rate with maximum heart rate 139 beats per minute. Normal hemodynamic response. Resting blood pressure 118/70 mmHg. Peak blood pressure 156/82 mmHg. JOHAN minus 18%. 10.1 METS of workload. Baseline rhythm was sinus. During stress, no convincing ischemic changes seen. No significant arrhythmias. No chest pain. The patient felt knee pain. RAW DATA: Breast shadow was seen. GATED STUDY: Resting LV ejection fraction 78 and stress LV ejection fraction 86%. No significant wall motion abnormalities. Resting end-diastolic volume 85 mL. TID ratio 0.89, which is within normal limits. Lung/heart ratio 0.25, which is within normal limits. MYOCARDIAL PERFUSION SCAN: Stress supine, resting supine and stress prone images were compared to each other. Stress supine and resting supine images revealed small size, mildly decreased perfusion of inferoapex, which got resolved during stress prone images suggestive of tissue attenuation artifact. No convincing ischemia or infarction. CONCLUSION: This is a normal myocardial perfusion study with evidence of tissue attenuation artifact, which got resolved during stress prone images. Good exercise tolerance. Normal hemodynamic response. Preserved left ventricular function. No significant arrhythmias. No anginal pain. Overall, low-risk myocardial perfusion scan. [employer] - LAKESHA/sofy/amaris doc#: [id number]/job#: [id number] dd: 11/02/2022 16:57:00 dt: 11/02/2022 18:10:00 DICTATING MD/COPIES TO: Charity Buckner MD COPIES MNE: KELLY;
== END ==
PROVIDERS: PCP Student in an Organized Health Care Education/Training Program; Referring Provider Student in an Organized Health Care Education/Training Program; Visit Provider Student in an Organized Health Care Education/Training Program
DX: R07.89 Other chest pain (principal); Z13.820 Encounter for screening for osteoporosis; R42 Dizziness and giddiness; M85.852 Other specified disorders of bone density and structure, left thigh; Z78.0 Asymptomatic menopausal state
CPT/HCPCS: 77080; 78452; 93017; A9502

== ENCOUNTER → 2023-01-14 09:37 | Outpatient (CLI) | payer MEDICARE, SELFPAY ==
--- NOTE | 2023-01-14 09:39 | DI.RAD.S_ITS ---
PROCEDURE: XR TOE LT MIN 2V INDICATIONS: Great toe injury TECHNIQUE: Frontal view of the foot, two views of the 1st toe acquired. COMPARISON: None. FINDINGS: Bones: No acute fracture or dislocation identified. Severe 1st MTP joint degenerative changes are present. Polyarticular midfoot degenerative changes and scattered interphalangeal joint degenerative changes also present. Soft tissues: No suspicious soft tissue densities. IMPRESSION: No acute fracture identified. If symptoms persist, follow-up radiographs and/or CT or MRI may be helpful for further evaluation. Dictated by: Candelario Schroeder M.D. on 01/14/2023 at 15:36 Approved by: Candelario Schroeder M.D. on 01/14/2023 at 15:43
== END ==
PROVIDERS: PCP Pediatrics; Referring Provider Nurse Practitioner Family; Visit Provider Nurse Practitioner Family
DX: S99.929A Unspecified injury of unspecified foot, initial encounter (principal)
CPT/HCPCS: 73660

== ENCOUNTER → 2023-06-05 12:43 | Outpatient (CLI) | payer MEDICARE, SELFPAY ==
--- NOTE | 2023-06-05 | DI.MG.S_ITS ---
BILATERAL DIGITAL SCREENING MAMMOGRAM 3D/2D WITH CAD WITH AUGMENTATION: 06/05/2023 CLINICAL: Routine screening. Comparison is made to exams dated: 04/17/2022 mammogram, 02/07/2021 mammogram, and 01/13/2020 mammogram - [facility]. There are scattered areas of fibroglandular density in both breasts (category b / 25%-50% glandular tissue). Current study was also evaluated with a Computer Aided Detection (CAD) system. Right breast implant is stable and intact. There are benign calcifications in the left breast. No significant masses, calcifications, or other findings are seen in either breast. There has been no significant interval change. IMPRESSION: BENIGN There is no mammographic evidence of malignancy. A 1 year screening mammogram is recommended. Based on the Tyrer Cuzick model (a risk assessment model) the patient's lifetime risk is 4.2% and her 10 year risk is 0.0%. According to the ACR, ACS, and NCCN guidelines, an annual breast MRI exam along with mammogram is recommended if the patient's lifetime risk is 20% or greater. This exam was interpreted at Station ID: [id number]. NOTE: For mammograms, a report in lay terms will be sent to the patient. Approximately 15% of breast malignancies will not be visualized mammographically. In the management of a palpable breast mass, a negative mammogram must not discourage biopsy of a clinically suspicious lesion. Electronically Signed By: Michele [email or web address]:06/05/2023 16:15:48 letter sent: Normal Exam ACR BI-RADS Category 2: Benign Finding(s) 3342F
== END ==
PROVIDERS: PCP Family Medicine; Referring Provider Family Medicine; Visit Provider Family Medicine
DX: Z12.31 Encounter for screening mammogram for malignant neoplasm of breast (principal)
CPT/HCPCS: 77063; 77067

== ENCOUNTER → 2023-08-13 09:21 | Outpatient (CLI) | payer MEDICARE, SELFPAY ==
[2023-08-13 11:18] LABS: Thyroid Stimulating Hormone 1.62 uIU/mL (0.47-4.68)
[2023-08-13 11:34] LABS: Free T4, Direct Thyroxine 0.97 ng/dL (0.78-2.19)
[2023-08-13 13:07] LABS: Alanine Aminotransferase 23 IU/L (<35); Albumin 3.9 g/dL (3.5-5.0); Albumin Globulin Ratio 1.3 (1.0-2.8); Alkaline Phosphatase 62 U/L (38-126); Aspartate Aminotransferase 29 IU/L (14-36); BUN Creatinine Ratio 23.8 (6-22); Bilirubin Total 1.2 mg/dL (0.2-1.3); Blood Urea Nitrogen 15 mg/dL (7-17); Calcium 9.5 mg/dL (8.4-10.2); Carbon Dioxide 27 mmol/L (22-32); Chloride 105 mmol/L (98-107); Cholesterol 179 mg/dL (140-199); Estimated Glomerular Filt Rate > 60 mL/min (>60); Globulin 2.9 g/dL (1.7-4.1); Glucose 91 mg/dL (80-110); HDL Cholesterol 74 mg/dL (40-60); HEMOLYSIS < 15 (0-50); LDL Cholesterol Calculated 90 mg/dL (<100); Potassium 5.1 mmol/L (3.4-5.1); Sodium 137 mmol/L (137-145); Total Protein 6.8 g/dL (6.3-8.2); Triglycerides 76 mg/dL (35-150)
== END ==
LOC: LAB 09:22
PROVIDERS: Family Provider Family Medicine; PCP Family Medicine; Referring Provider Family Medicine; Visit Provider Family Medicine
DX: E78.2 Mixed hyperlipidemia (principal); E03.9 Hypothyroidism, unspecified
CPT/HCPCS: 36415; 80053; 80061; 84439; 84443

== ENCOUNTER 2023-09-19 14:30 | Outpatient (RCR) | payer MEDICARE, SELFPAY ==
--- NOTE | 2023-07-30 17:16 | PT.OIE ---
Current Diagnoses Bilateral primary osteoarthritis of knee (07/30/23) Unilateral primary osteoarthritis of first carpometacarpal joint, unspecified hand (07/30/23) Other specified disorders of bone density and structure, unspecified site (07/30/23) Asymptomatic menopausal state (07/30/23) Past Medical History (This Medical Record has been edited. Action required.) Chicken pox (~1949) Closed right ankle fracture Measles (~1953) Tinnitus (~2007) Past Surgical History (This Medical Record has been edited. Action required.) Anesthesia History of breast implant (~1981) History of breast implant (~2000) History of mandibular surgery (~1978) Status post skin graft (~1950) Visit Care Team Role Provider Type Ponce Cintron DO Family Provider Physician Primary Care Provider Specialty: Family Practice Address: [address] [place] [address] Email: [email or web address] PA-C Attending Provider Advanced Oil Field Equipment Mechanic Referring Provider Specialty: Medical Wound Care Address: [address] [place] [address], [facility] Email: [email or web address] Physical Therapy Initial Evaluation PT-OP-A Visit Information Start: 07/16/23 17:17 Freq: Status: Active Protocol: Document 07/30/23 11:17 LRN (Rec: 07/30/23 12:18 ARNOLD [id number]) Out-Patient Physical Therapy Visit Information Visit Information Visit Type Initial Evaluation Visit Start Time 11:17 Visit Stop Time 12:14 Total Visit Minutes 57 Visit Number 1 Evaluation Information Evaluation Date 07/30/23 Precautions Precautions Arthritis, back pain, new onset of dizziness with squatting PT-OP-B Current Condition Start: 07/16/23 17:17 Freq: Status: Active Protocol: Document 07/30/23 11:17 LRN (Rec: 07/30/23 12:18 DEN [id number]) Current Condition History of Current Condition Onset Date 08/2022 Current Complaints Charissa thumb pain limiting ability to put gloves on, L keeps awake at night. History of Current Condition States she would like to focus therapy on her hands to start , and then her knees later. States she is being referred to therapy because she wanted ex's that could help her with weakness in the thumbs and if possible to help reduce bilateral thumb pain (L>R). States when putting on gloves to help her spouse, it is extremely painful to don > doff the gloves 1-2x/day ( gloves needed to clean spouse after BM and when putting on his nerve cream). States her thumb pain keeps her up at night. States charissa knee pain since 2019 and has gradually worsened over time. States she is most limited in her abilty to walk for exercise and ambulate stairs. Is now ascending/descending with one step at time (90% of time, leading with L strong leg). Prior Treatments and Tests One injection in R knee 2019 that was helpful. Treatment Goals Patient/Caregiver Goals Pt goals: Exercises to strengthen the hands to improve functional activities (buttoning and opening jars - pickle & Tide pod containers). Exercises to strength knees to ambute stair with step over step gait. HEP. Personal Factors Other Personal Factors That May Effect Arthritis, Back pain since Therapy/Recovery 2019 from lifting w/c in & out of car (stiil doing), recent on set of ocassional intermittent dizziness ( squatting). PT-OP-C Subjective Start: 07/16/23 17:17 Freq: Status: Active Protocol: Document 07/30/23 11:17 LRN (Rec: 07/30/23 12:18 LRN [id number]) Patient Questionnaires Lower Extremity Functional Scale LEFS Score 47 LEFS Impairment 40 to 59% Impaired (Score 32- 47) Quick Dash- Upper Extremity Quick Dash UE Score 61.36 Quick Dash UE Impairment 60 to 79% Impaired (Score 60- 79) OP-PT Pain Assessment Pain Assessment Grid Paper Pain Assessment Grid Completed Yes Location R knee Pain Location Details Diffuse anterior knee pain. Intensity 4 Scale Used Numeric (0 - 10) Description Aching,Sharp,Throbbing Description- Other Sharp w/stairs. Frequency Constant Pain Duration Ache and throbbing is constant . Pain Aggravating Factors Stair Climbing Pain Alleviating Factors Cold Other Pain Alleviating Factors Heat works better than cold. L knee Pain Location Details Diffuse anterior knee pain. Intensity 3 Scale Used Numeric (0 - 10) Description Aching,Sharp,Stabbing, Throbbing Frequency Constant Pain Duration Ache and throbbing is constant . Pain Aggravating Factors Stair Climbing Pain Alleviating Factors Cold,Heat Other Pain Alleviating Factors Heat works better than cold. R thumb Pain Location Details Thenar eminence, CMC and MCP jt Intensity 4 Scale Used Numeric (0 - 10) Description Aching,Sharp,Stabbing,Tingling Description- Other More moderate pain than L thumb. Frequency Intermittent Other Pain Alleviating Factors Heat works better than cold. L thumb Pain Location Details Thenar eminence, CMC and MCP jt Intensity 7 Scale Used Numeric (0 - 10) Description Aching,Sharp,Stabbing, Throbbing Description- Other At rest-aches/throbs, With use sharp stabbing Frequency Constant Pain Duration Constant ache, keeps awake at night. Pain Alleviating Factors Cold,Heat Other Pain Alleviating Factors Heat works better than cold. PT-OP-H Neuro Start: 07/16/23 17:17 Freq: Status: Active Protocol: Document 07/30/23 11:17 LRN (Rec: 07/30/23 12:18 LRN [id number]) Sensation Evaluation Gross Sensation Gross Sensation WNL PT-OP-J Posture/Palpation/Skin Start: 07/16/23 17:17 Freq: Status: Active Protocol: Document 07/30/23 11:17 LRN (Rec: 07/30/23 12:18 LRN [id number]) Posture Evaluation Position Standing Head/C-Spine Posture Forward Head Shoulder Posture (L) Elevated Arm Posture (L) Neutral,(R) Neutral Pelvis Posture Neutral Knee Posture (L) Genu Varus,(R) Genu Varus Palpation Assessment Location Thenar eminence Palpation Location Bilateral Thenar eminence Palpation Findings Tenderness PT-OP-K Range of Motion Start: 07/16/23 17:17 Freq: Status: Active Protocol: Document 07/30/23 11:17 LRN (Rec: 07/30/23 12:18 LRN [id number]) Thumb Goniometric Range of Motion Thumb Right Thumb ROM WFL No MCP Flexion Active (degrees) 40 CMC Flexion Active (degrees) 0 CMC Extension Active (degrees) 30 Comments opp with 5th is cm lacking. 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 High School Learning Support Teacher strength avg for females 75+ is: 19.3 kgs R. Pinch strength avg for females 75+ is: 12.6 lbs R. Strength limited by thumb pain . Left High School Learning Support Teacher (lbs) 20 Tip Pinch (lbs) 0 Comments Pt High School Learning Support Teacher strength avg is 18 kg L. High School Learning Support Teacher strength avg for females 75+ is: 17.1 kgs L. Pinch strength avg for females 75+ is: 11.4 lbs L. Strength limited by thumb pain . Knee Strength Knee Manual Muscle Testing Right Flexion (S2) 4 Good Extension (L3) 4 Good Left Flexion (S2) 5 Normal Extension (L3) 4+ Good+ PT-OP-Q Treatments Start: 07/16/23 17:17 Freq: Status: Active Protocol: Document 07/30/23 11:17 LRN (Rec: 07/30/23 12:18 LRN [id number]) Self-Care/Home Management Treatment Education Other Education Discussed results of evaluation, goals, and plan of care (POC). Pt agreeable to goals and POC. Discussed & educated pt in pain management with Contrast Bath technique. Activities Self-Care/Home Management Activities Issued & reviewed self care pain management handout: Contrast Bath. PT-OP-T Assessment and Plan Start: 07/16/23 17:17 Freq: Status: Active Protocol: Document 07/30/23 11:17 LRN (Rec: 07/30/23 12:18 LRN [id number]) Physical Therapy Assessment Rehab Potential Rehabilitation Potential Good Evaluation Complexity Number of Personal Factors/Comorbidities 3 or More Number of Body Systems Impaired 4 or More Clinical Presentation at Evaluation Evolving Impairments Impairments Gait,Pain,Soft Tissue Mobility ,Strength Goals Three Impairment Charissa knee pain limiting stair ambulation. Impairment Ascend/descends stairs with a step to gait. L knee pain rated 3/10, R knee pain rated 4/10. Short Term Goal (STG) Pt will be educated in self care of pain management (heat, RICE) and HEP of knee strengthening ex's. STG Duration 3 weeks-08/20/23 Fpc Goal (LTG) Improve knee strength to improve stair ambulation function to a step over step gait. LTG Duration 12 wks-10/25/23 Two Impairment Bilateral thumb pain interferring functional activities and sleep at night. Impairment Charissa thumb pain limiting ability to button tops & opening jars (pickle and Tide Pod). L>R thumb pain interrupting sleep at night. L thumb pain rated 7/10, R thumb pain rated 4/10. Short Term Goal (STG) Pt will be educated in HEP of pain management of self STM. STG Duration 2 wks-08/13/23 Director Of Agronomy Goal (LTG) Pt will be educated in mobility ex's of the hands to improve function of buttoning and opening jars (pickle, Tide pods). LTG Duration 8 wks-09/27/23 One Impairment Pt lacks appropriate self care HEP. Short Term Goal (STG) Pt will be educated in a self care treatment of edema/pain management (contrast bath). STG Duration 1 wk-08/06/23 Fpc Goal (LTG) Pt will be educated in a modified gripping techniques to decrease pain with hand use . LTG Duration 8 wks-09/27/23 Assessment Summary Assessment Pt is a 77 yo female who presents with charissa thumb pain in the thenar eminence due to probably arthritic mechanical changes at the CMC and MCP jts and overuse of gripping from taking care of her spouse. Her bilateral thumb pain is resulting in decreased functional ability and interruption of sleep at night . 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 Pinch strength is also decreased due to thumb pain on left at 0 lbs L, 2.5 lbs R (avg for females 75+ is 12.6 lbs R, 11 .4 lbs L). Her general bilateral knee pain is interferring with functional ambulation on stairs, but the pt requests focusing her rehabilitation on her hands, and at a later time may chose to have therapy on her knees. The pt will benefit from skilled physical therapy to achieve the above stated goals . Physical Therapy Plan Frequency and Duration Frequency of Treatment 2x/Week Duration of treatment (weeks) 12 Plan of Care Start Date 07/30/23 Plan of Care End Date 10/25/23 Therapeutic Interventions Therapeutic Interventions Gait Training,Home Exercise Program,Joint Mobilizations, Manual Therapy,Self-Care/Home Management,Soft Tissue Mobilization,Taping, Therapeutic Activities, Therapeutic Exercises Modalities Cold Pack/Ice Massage,Hot Packs,Paraffin Bath,Ultrasound Next Visit Focus/Plan Next Note Type Treatment Note Next Visit Plan Next: Review contrast bath self care treatment. Educate pt in self care pain management of STM to thumbs. Special testing: Hardeep Test. Recheck thumb AROM ext and assess strength, f/b Paraffin Dip and ROM ex's. Hand Rehab for thumbs POC: Paraffin Dip, ROM thumb, strengthening thumb and hand. Knee Rehab POC: Assess knees for pain (localized or diffuse ) and ROM and educate in self care RICE/MH to bilateral knees. Knee strengthening.
--- NOTE | 2023-07-30 17:17 | PT.OPPOC ---
Physical, Occupational & Speech Therapy At [facility] Current Diagnoses Bilateral primary osteoarthritis of knee (07/30/23) Unilateral primary osteoarthritis of first carpometacarpal joint, unspecified hand (07/30/23) Other specified disorders of bone density and structure, unspecified site (07/30/23) Asymptomatic menopausal state (07/30/23) Visit Care Team Role Provider Type Ponce Cintron DO Family Provider Physician Primary Care Provider Specialty: Family Practice Address: [address] [place] [address], [facility] Email: [email or web address] Lilly Shaw PA-C Attending Provider Advanced Automatic Gluing Machine Operator Referring Provider Specialty: Medical Wound Care Address: [address] [place] [address], [facility] Email: [email or web address] Plan Of Care PT-OP-T Assessment and Plan Start: 07/16/23 17:17 Freq: Status: Active Protocol: Document 07/30/23 11:17 LRN (Rec: 07/30/23 12:18 LRN [id number]) Physical Therapy Assessment Rehab Potential Rehabilitation Potential Good Evaluation Complexity Number of Personal Factors/Comorbidities 3 or More Number of Body Systems Impaired 4 or More Clinical Presentation at Evaluation Evolving Impairments Impairments Gait,Pain,Soft Tissue Mobility ,Strength Goals Three Impairment Charissa knee pain limiting stair ambulation. Impairment Ascend/descends stairs with a step to gait. L knee pain rated 3/10, R knee pain rated 4/10. Short Term Goal (STG) Pt will be educated in self care of pain management (heat, RICE) and HEP of knee strengthening ex's. STG Duration 3 weeks-08/20/23 [facility]ci Goal (LTG) Improve knee strength to improve stair ambulation function to a step over step gait. LTG Duration 12 wks-10/25/23 Two Impairment Bilateral thumb pain interferring functional activities and sleep at night. Impairment Charissa thumb pain limiting ability to button tops & opening jars (pickle and Tide Pod). L>R thumb pain interrupting sleep at night. L thumb pain rated 7/10, R thumb pain rated 4/10. Short Term Goal (STG) Pt will be educated in HEP of pain management of self STM. STG Duration 2 wks-08/13/23 Family Support Specialist Goal (LTG) Pt will be educated in mobility ex's of the hands to improve function of buttoning and opening jars (pickle, Tide pods). LTG Duration 8 wks-09/27/23 One Impairment Pt lacks appropriate self care HEP. Short Term Goal (STG) Pt will be educated in a self care treatment of edema/pain management (contrast bath). STG Duration 1 wk-08/06/23 Family Support Specialist Goal (LTG) Pt will be educated in a modified gripping techniques to decrease pain with hand use . LTG Duration 8 wks-09/27/23 Assessment Summary Assessment Pt is a 77 yo female who presents with charissa thumb pain in the thenar eminence due to probably arthritic mechanical changes at the CMC and MCP jts and overuse of gripping from taking care of her spouse. Her bilateral thumb pain is resulting in decreased functional ability and interruption of sleep at night . 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 Pinch strength is also decreased due to thumb pain on left at 0 lbs L, 2.5 lbs R (avg for females 75+ is 12.6 lbs R, 11 .4 lbs L). Her general bilateral knee pain is interferring with functional ambulation on stairs, but the pt requests focusing her rehabilitation on her hands, and at a later time may chose to have therapy on her knees. The pt will benefit from skilled physical therapy to achieve the above stated goals . Physical Therapy Plan Frequency and Duration Frequency of Treatment 2x/Week Duration of treatment (weeks) 12 Plan of Care Start Date 07/30/23 Plan of Care End Date 10/25/23 Therapeutic Interventions Therapeutic Interventions Gait Training,Home Exercise Program,Joint Mobilizations, Manual Therapy,Self-Care/Home Management,Soft Tissue Mobilization,Taping, Therapeutic Activities, Therapeutic Exercises Modalities Cold Pack/Ice Massage,Hot Packs,Paraffin Bath,Ultrasound Next Visit Focus/Plan Next Note Type Treatment Note Next Visit Plan Next: Review contrast bath self care treatment. Educate pt in self care pain management of STM to thumbs. Special testing: Hardeep Test. Recheck thumb AROM ext and assess strength, f/b Paraffin Dip and ROM ex's. Hand Rehab for thumbs POC: Paraffin Dip, ROM thumb, strengthening thumb and hand. Knee Rehab POC: Assess knees for pain (localized or diffuse ) and ROM and educate in self care RICE/MH to bilateral knees. Knee strengthening. Plan of Care Dates Plan of Care Start Date 07/30/23 Plan of Care End Date 10/25/23 Electronically Signed by: Elizabet Pathak, PT 07/30/23 1428 If you are in agreement with this Plan of Care, please return a signed and dated copy. I have reviewed this Plan of Care and certify that the skilled therapy services above are required to meet the patient?s needs. Physician Signature Date Printed Name and Credentials Clinical Instructor Signature Printed Name and Credentials
--- NOTE | 2023-08-06 13:57 | PT.OTN ---
Current Diagnoses Bilateral primary osteoarthritis of knee (08/06/23) Unilateral primary osteoarthritis of first carpometacarpal joint, unspecified hand (08/06/23) Other specified disorders of bone density and structure, unspecified site (08/06/23) Asymptomatic menopausal state (08/06/23) Physical Therapy Treatment Note PT-OP-A Visit Information Start: 07/16/23 17:17 Freq: Status: Active Protocol: Document 08/06/23 11:23 LRN (Rec: 08/06/23 12:06 LRN [id number]) Out-Patient Physical Therapy Visit Information Visit Information Visit Type Treatment Note Visit Start Time 11:23 Visit Stop Time 12:02 Total Visit Minutes 39 Visit Number Evaluation Information Evaluation Date 07/30/23 Precautions Precautions Arthritis, back pain, new onset of dizziness with squatting PT-OP-B Current Condition Start: 07/16/23 17:17 Freq: Status: Active Protocol: Document 07/30/23 11:17 LRN (Rec: 07/30/23 12:18 LRN [id number]) Current Condition History of Current Condition Onset Date 08/2022 Current Complaints Charissa thumb pain limiting ability to put gloves on, L keeps awake at night. History of Current Condition States she would like to focus therapy on her hands to start , and then her knees later. States she is being referred to therapy because she wanted ex's that could help her with weakness in the thumbs and if possible to help reduce bilateral thumb pain (L>R). States when putting on gloves to help her spouse, it is extremely painful to don > doff the gloves 1-2x/day ( gloves needed to clean spouse after BM and when putting on his nerve cream). States her thumb pain keeps her up at night. States charissa knee pain since 2019 and has gradually worsened over time. States she is most limited in her abilty to walk for exercise and ambulate stairs. Is now ascending/descending with one step at time (90% of time, leading with L strong leg). Prior Treatments and Tests One injection in R knee 2019 that was helpful. Treatment Goals Patient/Caregiver Goals Pt goals: Exercises to strengthen the hands to improve functional activities (buttoning and opening jars - pickle & Tide pod containers). Exercises to strength knees to ambute stair with step over step gait. HEP. Personal Factors Other Personal Factors That May Effect Arthritis, Back pain since Therapy/Recovery 2020 from lifting w/c in & out of car (stiil doing), recent on set of ocassional intermittent dizziness ( squatting). PT-OP-C Subjective Start: 07/16/23 17:17 Freq: Status: Active Protocol: Document 08/06/23 11:23 LRN (Rec: 08/06/23 12:06 LRN [id number]) OP-PT Subjective Patient Comments Patient Comments States contrast bath helped a little, has a little more mobility in thumbs. States she walks down stairs leading with RLE, upstairs leading with LLE. PT-OP-H Neuro Start: 07/16/23 17:17 Freq: Status: Active Protocol: Document 07/30/23 11:17 LRN (Rec: 07/30/23 12:18 LRN [id number]) Sensation Evaluation Gross Sensation Gross Sensation WNL PT-OP-J Posture/Palpation/Skin Start: 07/16/23 17:17 Freq: Status: Active Protocol: Document 07/30/23 11:17 LRN (Rec: 07/30/23 12:18 LRN [id number]) Posture Evaluation Position Standing Head/C-Spine Posture Forward Head Shoulder Posture (L) Elevated Arm Posture (L) Neutral,(R) Neutral Pelvis Posture Neutral Knee Posture (L) Genu Varus,(R) Genu Varus Palpation Assessment Location Thenar eminence Palpation Location Bilateral Thenar eminence Palpation Findings Tenderness PT-OP-K Range of Motion Start: 07/16/23 17:17 Freq: Status: Active Protocol: Document 08/06/23 11:23 LRN (Rec: 08/06/23 12:06 LRN [id number]) Thumb Goniometric Range of Motion Thumb Right Thumb ROM WFL No MCP Flexion Active (degrees) 54 IP Flexion Active (degrees) 50 CMC Flexion Active (degrees) 20 Comments Oppositon normal. CMC flex is with stretch at joint. Thumb AD to 5th MCP palmar pad with tension at CMC jt. Left Thumb ROM WFL No MCP Flexion Active (degrees) 52 IP Flexion Active (degrees) 56 CMC Flexion Active (degrees) 26 Comments Oppositon normal. Thumb AD to 5th MCP palmar pad without pain in thenar eminence. Note: Thenar eminence pain ( sometimes MCP jt pain) limiting thumb joint mobility. PT-OP-L Special Tests Start: 07/16/23 17:17 Freq: Status: Active Protocol: Document 07/30/23 11:17 LRN (Rec: 07/30/23 12:18 LRN [id number]) Special Tests Wrist/Hand Special Tests Grind TEst Test Results + Bilaterally, R worse than L PT-OP-M Strength Start: 07/16/23 17:17 Freq: Status: Active Protocol: Document 07/30/23 11:17 LRN (Rec: 07/30/23 12:18 LRN [id number]) Hand [employer]/Pinch Strength Hand Dominance Hand Dominance Right Hand Strength Right [employer] (lbs) 35 Tip Pinch (lbs) 2.5 Comments Pt [employer] strength avg is 14.6 kg R. [employer] strength avg for females 75+ is: 19.3 kgs R. Pinch strength avg for females 75+ is: 12.6 lbs R. Strength limited by thumb pain . Left [employer] (lbs) 20 Tip Pinch (lbs) 0 Comments Pt [employer] strength avg is 18 kg L. [employer] strength avg for females 75+ is: 17.1 kgs L. Pinch strength avg for females 75+ is: 11.4 lbs L. Strength limited by thumb pain . Knee Strength Knee Manual Muscle Testing Right Flexion (S2) 4 Good Extension (L3) 4 Good Left Flexion (S2) 5 Normal Extension (L3) 4+ Good+ PT-OP-Q Treatments Start: 07/16/23 17:17 Freq: Status: Active Protocol: Document 08/06/23 11:23 LRN (Rec: 08/06/23 12:06 LRN [id number]) Therapeutic Exercises Sitting Exercises L thumb rolf Sitting Exercise Name L thumb Rolf flex, AB, Ext, AD Side left Reps/Minutes 16' Manual Therapy Treatment Soft Tissue Mobilization L Thenar eminence Body Location L Thenar [place], and thumb AD/web space Mobilization Type Cross-Friction,Strumming, Sustained Pressure,Trigger Point Release Intensity/Depth Superficial to mod Body Position Sitting Self-Care/Home Management Treatment Education Patient Education Pain Management Other Education Reviewed pain management with Contrast Bath technique. Pt educated in self care STM to thumb thenar eminence for pain management. PT-OP-T Assessment and Plan Start: 07/16/23 17:17 Freq: Status: Active Protocol: Document 08/06/23 11:23 LRN (Rec: 08/06/23 12:06 LRN [id number]) Physical Therapy Assessment Goals Three Impairment Charissa knee pain limiting stair ambulation. Impairment Ascend/descends stairs with a step to gait. L knee pain rated 3/10, R knee pain rated 4/10. Short Term Goal (STG) Pt will be educated in self care of pain management (heat, RICE) and HEP of knee strengthening ex's. STG Duration 3 weeks-08/20/23 Detention Goal (LTG) Improve knee strength to improve stair ambulation function to a step over step gait. LTG Duration 12 wks-10/25/23 Two Impairment Bilateral thumb pain interferring functional activities and sleep at night. Impairment Charissa thumb pain limiting ability to button tops & opening jars (pickle and Tide Pod). L>R thumb pain interrupting sleep at night. L thumb pain rated 7/10, R thumb pain rated 4/10. Short Term Goal (STG) Pt will be educated in HEP of pain management of self STM. 08/06/23: Education in self STM to thenar eminence of thumbs for pain relief. STG Duration 2 wks-08/13/23 (08/06/23: MET GOAL) [employer] Goal (LTG) Pt will be educated in mobility ex's of the hands to improve function of buttoning and opening jars (pickle, Tide pods). LTG Duration 8 wks-09/27/23 One Impairment Pt lacks appropriate self care HEP. Short Term Goal (STG) Pt will be educated in a self care treatment of edema/pain management (contrast bath). 07/30/23: Education in contrast bath. 08/06/23: Education in self STM to thenar eminence of thumbs for pain relief. STG Duration 1 wk-08/06/23 (08/06/23: MET GOAL) Detention Goal (LTG) Pt will be educated in a modified gripping techniques to decrease pain with hand use . LTG Duration 8 wks-09/27/23 Assessment Summary Assessment Pt with charissa thumb pain in the thenar eminence probably due to arthritic mechanical changes at the CMC and MCP jts and overuse of gripping. Today it appears she had a + response to contrast bath treatments at home and with nighttime treatment is able to sleep and avoid Meloxicam med . Pt's L thenar eminence had many, many active trigger points and pain with mvmt at CMC jt probably due to weakness and instability as well as tightness of her thumb extensors (+Hardeep test bilaterally). Physical Therapy Plan Frequency and Duration Frequency of Treatment 2x/Week Duration of treatment (weeks) 12 Plan of Care Start Date 07/30/23 Plan of Care End Date 10/25/23 Next Visit Focus/Plan Next Note Type Treatment Note Next Visit Plan Next: Educate knee pain management with RICE technique . Recheck thumb AROM ext and assess strength, f/b Paraffin Dip and ROM ex's. Hand Rehab for thumbs before charissa knee rehab. Ther Act: If pt brings gloves in, training for donning/ doffing gloves with least amt of pain. Educate and ex with use of modified gripping techiniques Ther Ex hands: mobility ex's to improve function of buttoning and opening jars ( pickle, Tide pods). POC: Paraffin Dip, ROM thumb, strengthening thumb and hand. Knee Rehab POC: Assess knees for pain (localized or diffuse ) and ROM and educate in self care RICE/MH to bilateral knees. Knee strengthening.
--- NOTE | 2023-08-13 12:20 | PT.OTN ---
Current Diagnoses Bilateral primary osteoarthritis of knee (08/13/23) Unilateral primary osteoarthritis of first carpometacarpal joint, unspecified hand (08/13/23) Other specified disorders of bone density and structure, unspecified site (08/13/23) Asymptomatic menopausal state (08/13/23) Physical Therapy Treatment Note PT-OP-A Visit Information Start: 07/16/23 17:17 Freq: Status: Active Protocol: Document 08/13/23 11:19 LRN (Rec: 08/13/23 12:15 LRN [id number]) Out-Patient Physical Therapy Visit Information Visit Information Visit Type Treatment Note Visit Start Time 11:19 Visit Stop Time 12:02 Total Visit Minutes 43 Visit Number Evaluation Information Evaluation Date 07/30/23 Precautions Precautions Arthritis, back pain, new onset of dizziness with squatting PT-OP-B Current Condition Start: 07/16/23 17:17 Freq: Status: Active Protocol: Document 07/30/23 11:17 LRN (Rec: 07/30/23 12:18 LRN [id number]) Current Condition History of Current Condition Onset Date 08/2022 Current Complaints Franky thumb pain limiting ability to put gloves on, L keeps awake at night. History of Current Condition States she would like to focus therapy on her hands to start , and then her knees later. States she is being referred to therapy because she wanted ex's that could help her with weakness in the thumbs and if possible to help reduce bilateral thumb pain (L>R). States when putting on gloves to help her spouse, it is extremely painful to don > doff the gloves 1-2x/day ( gloves needed to clean spouse after BM and when putting on his nerve cream). States her thumb pain keeps her up at night. States franky knee pain since 2019 and has gradually worsened over time. States she is most limited in her abilty to walk for exercise and ambulate stairs. Is now ascending/descending with one step at time (90% of time, leading with L strong leg). Prior Treatments and Tests One injection in R knee 2019 that was helpful. Treatment Goals Patient/Caregiver Goals Pt goals: Exercises to strengthen the hands to improve functional activities (buttoning and opening jars - pickle & Tide pod containers). Exercises to strength knees to ambute stair with step over step gait. HEP. Personal Factors Other Personal Factors That May Effect Arthritis, Back pain since Therapy/Recovery 2020 from lifting w/c in & out of car (stiil doing), recent on set of ocassional intermittent dizziness ( squatting). PT-OP-C Subjective Start: 07/16/23 17:17 Freq: Status: Active Protocol: Document 08/13/23 11:19 LRN (Rec: 08/13/23 12:15 LRN [id number]) OP-PT Subjective Patient Comments Patient Comments Had been doing good until yesterday, more ache. Knees are okay. Able to fall back to sleep after knee burning pain. PT-OP-H Neuro Start: 07/16/23 17:17 Freq: Status: Active Protocol: Document 07/30/23 11:17 LRN (Rec: 07/30/23 12:18 LRN [id number]) Sensation Evaluation Gross Sensation Gross Sensation WNL PT-OP-J Posture/Palpation/Skin Start: 07/16/23 17:17 Freq: Status: Active Protocol: Document 07/30/23 11:17 LRN (Rec: 07/30/23 12:18 LRN [id number]) Posture Evaluation Position Standing Head/C-Spine Posture Forward Head Shoulder Posture (L) Elevated Arm Posture (L) Neutral,(R) Neutral Pelvis Posture Neutral Knee Posture (L) Genu Varus,(R) Genu Varus Palpation Assessment Location Thenar eminence Palpation Location Bilateral Thenar eminence Palpation Findings Tenderness PT-OP-K Range of Motion Start: 07/16/23 17:17 Freq: Status: Active Protocol: Document 08/13/23 11:19 LRN (Rec: 08/13/23 12:15 LRN [id number]) Thumb Goniometric Range of Motion Thumb Right Thumb ROM WFL No MCP Flexion Active (degrees) 54 MCP Extension Active (0 degrees) 0 IP Flexion Active (degrees) 50 IP Extension Active (degrees) 22 CMC Flexion Active (degrees) 20 CMC Extension Active (degrees) 20 Comments Oppositon normal. CMC flex is with stretch at joint. Thumb AD to 5th MCP palmar pad with tension at CMC jt. Left Thumb ROM WFL No MCP Flexion Active (degrees) 52 MCP Extension Active (0 degrees) 0 IP Flexion Active (degrees) 56 IP Extension Active (degrees) 10 CMC Flexion Active (degrees) 26 CMC Extension Active (degrees) 10 Comments Oppositon normal. Thumb AD to 5th MCP palmar pad without pain in thenar eminence. Note: Thenar eminence pain ( sometimes MCP jt pain) limiting thumb joint mobility. PT-OP-L Special Tests Start: 07/16/23 17:17 Freq: Status: Active Protocol: Document 07/30/23 11:17 LRN (Rec: 07/30/23 12:18 LRN [id number]) Special Tests Wrist/Hand Special Tests Grind TEst Test Results + Bilaterally, R worse than L PT-OP-M Strength Start: 07/16/23 17:17 Freq: Status: Active Protocol: Document 07/30/23 11:17 LRN (Rec: 07/30/23 12:18 LRN [id number]) Hand [employer]/Pinch Strength Hand Dominance Hand Dominance Right Hand Strength Right [employer] (lbs) 35 Tip Pinch (lbs) 2.5 Comments Pt [employer] strength avg is 14.6 kg R. [employer] strength avg for females 75+ is: 19.3 kgs R. Pinch strength avg for females 75+ is: 12.6 lbs R. Strength limited by thumb pain . Left [employer] (lbs) 20 Tip Pinch (lbs) 0 Comments Pt [employer] strength avg is 18 kg L. [employer] strength avg for females 75+ is: 17.1 kgs L. Pinch strength avg for females 75+ is: 11.4 lbs L. Strength limited by thumb pain . Knee Strength Knee Manual Muscle Testing Right Flexion (S2) 4 Good Extension (L3) 4 Good Left Flexion (S2) 5 Normal Extension (L3) 4+ Good+ PT-OP-Q Treatments Start: 07/16/23 17:17 Freq: Status: Active Protocol: Document 08/13/23 11:19 LRN (Rec: 08/13/23 12:15 LRN [id number]) Therapeutic Exercises Sitting Exercises Thumb PROM Sitting Exercise Name Thumb PROM CMC, MCP, IP jts. Side bilateral Thumb AROM Sitting Exercise Name Thumb AROM CMC, MCP, IP jts. Side bilateral Manual Therapy Treatment Soft Tissue Mobilization L Thenar eminence Body Location L Thenar [place], and thumb AD/web space Mobilization Type Oscillations Intensity/Depth Superficial to mod Body Position Sitting PT-OP-R Modalities Start: 07/16/23 17:17 Freq: Status: Active Protocol: Document 08/13/23 11:19 LRN (Rec: 08/13/23 12:18 LRN [id number]) Paraffin Bath Treatment Right Hand Treatment Technique Immersion Bath Wax Temperature (degrees F) 120 Number Wax Layers (layers) 8 Duration (minutes) 8 Patient Tolerance Good Left Hand Treatment Technique Immersion Bath Wax Temperature (degrees F) 120 Number Wax Layers (layers) 8 Duration (minutes) 8 Patient Tolerance Good PT-OP-T Assessment and Plan Start: 07/16/23 17:17 Freq: Status: Active Protocol: Document 08/13/23 11:19 LRN (Rec: 08/13/23 12:15 LRN [id number]) Physical Therapy Assessment Goals Three Impairment Franky knee pain limiting stair ambulation. Impairment Ascend/descends stairs with a step to gait. L knee pain rated 3/10, R knee pain rated 4/10. Short Term Goal (STG) Pt will be educated in self care of pain management (heat, RICE) and HEP of knee strengthening ex's. STG Duration 3 weeks-08/20/23 [facility] [employer] Goal (LTG) Improve knee strength to improve stair ambulation function to a step over step gait. LTG Duration 12 wks-10/25/23 Two Impairment Bilateral thumb pain interferring functional activities and sleep at night. Impairment Franky thumb pain limiting ability to button tops & opening jars (pickle and Tide Pod). L>R thumb pain interrupting sleep at night. L thumb pain rated 7/10, R thumb pain rated 4/10. Short Term Goal (STG) Pt will be educated in HEP of pain management of self STM. 08/06/23: Education in self STM to thenar eminence of thumbs for pain relief. STG Duration 2 wks-08/13/23 (08/06/23: MET GOAL) [facility] [employer] Goal (LTG) Pt will be educated in mobility ex's of the hands to improve function of buttoning and opening jars (pickle, Tide pods). 08/13/23: I/S pt thumb strengthening (ext/flex). LTG Duration 8 wks-09/27/23 progressed One Impairment Pt lacks appropriate self care HEP. Short Term Goal (STG) Pt will be educated in a self care treatment of edema/pain management (contrast bath). 07/30/23: Education in contrast bath. 08/06/23: Education in self STM to thenar eminence of thumbs for pain relief. STG Duration 1 wk-08/06/23 (08/06/23: MET GOAL) [facility] Goal (LTG) Pt will be educated in a modified gripping techniques to decrease pain with hand use . LTG Duration 8 wks-09/27/23 Assessment Summary Assessment Pt with franky thumb pain in the thenar eminence probably due to arthritic mechanical changes at the CMC and MCP jts and overuse of gripping. Today, Thumb Active ext is L worse than R, but WNL. Thumb Active flex is decreased at L MCP, and R IP/CMC jts. Pain still with L thumb opposition. Pt thought she felt a pop in thumb (near MCP jt) with active thumb flexion. Visually red skin abrasion at L thumb from pt's cat yesterday, not visually noticeable prior to paraffin wax. Physical Therapy Plan Frequency and Duration Frequency of Treatment 2x/Week Duration of treatment (weeks) 12 Plan of Care Start Date 07/30/23 Plan of Care End Date 10/25/23 Next Visit Focus/Plan Next Note Type Treatment Note Next Visit Plan Next: Educate knee pain management with RICE technique . Assess thumb strength, f/b Paraffin Dip and ROM ex's. If pt brings gloves in, training for donning/doffing gloves with least amt of pain. Hand Rehab for thumbs (ROM/ strengthening) before franky knee rehab. Ther Act: Educate and ex with use of modified gripping techiniques Ther Ex hands: mobility ex's to improve function of buttoning and opening jars ( pickle, Tide pods). POC: Paraffin Dip, ROM thumb, strengthening thumb and hand. Knee Rehab POC: Assess knees for pain (localized or diffuse ) and ROM and educate in self care RICE/MH to bilateral knees. Knee strengthening.
--- NOTE | 2023-08-20 12:23 | PT.OTN ---
Current Diagnoses Bilateral primary osteoarthritis of knee (08/20/23) Unilateral primary osteoarthritis of first carpometacarpal joint, unspecified hand (08/20/23) Other specified disorders of bone density and structure, unspecified site (08/20/23) Asymptomatic menopausal state (08/20/23) Physical Therapy Treatment Note PT-OP-A Visit Information Start: 07/16/23 17:17 Freq: Status: Active Protocol: Document 08/20/23 11:22 LRN (Rec: 08/20/23 12:22 LRN [id number]) Out-Patient Physical Therapy Visit Information Visit Information Visit Type Treatment Note Visit Start Time 11:23 Visit Stop Time 12:03 Visit Number 4 Evaluation Information Evaluation Date 07/30/23 Precautions Precautions Arthritis, back pain, new onset of dizziness with squatting PT-OP-B Current Condition Start: 07/16/23 17:17 Freq: Status: Active Protocol: Document 07/30/23 11:17 LRN (Rec: 07/30/23 12:18 LRN [id number]) Current Condition History of Current Condition Onset Date 08/2022 Current Complaints Charissa thumb pain limiting ability to put gloves on, L keeps awake at night. History of Current Condition States she would like to focus therapy on her hands to start , and then her knees later. States she is being referred to therapy because she wanted ex's that could help her with weakness in the thumbs and if possible to help reduce bilateral thumb pain (L>R). States when putting on gloves to help her spouse, it is extremely painful to don > doff the gloves 1-2x/day ( gloves needed to clean spouse after BM and when putting on his nerve cream). States her thumb pain keeps her up at night. States charissa knee pain since 2019 and has gradually worsened over time. States she is most limited in her abilty to walk for exercise and ambulate stairs. Is now ascending/descending with one step at time (90% of time, leading with L strong leg). Prior Treatments and Tests One injection in R knee 2019 that was helpful. Treatment Goals Patient/Caregiver Goals Pt goals: Exercises to strengthen the hands to improve functional activities (buttoning and opening jars - pickle & Tide pod containers). Exercises to strength knees to ambute stair with step over step gait. HEP. Personal Factors Other Personal Factors That May Effect Arthritis, Back pain since Therapy/Recovery 2019 from lifting w/c in & out of car (stiil doing), recent on set of ocassional intermittent dizziness ( squatting). PT-OP-C Subjective Start: 07/16/23 17:17 Freq: Status: Active Protocol: Document 08/20/23 11:22 LRN (Rec: 08/20/23 12:22 LRN [id number]) OP-PT Subjective Patient Comments Patient Comments Thinks thumb mobility is improved compared to R side. Doesn't hurt to flex L thumb IP jt. Pain is going inward ( thumb to palmar MCP jt). PT-OP-H Neuro Start: 07/16/23 17:17 Freq: Status: Active Protocol: Document 07/30/23 11:17 LRN (Rec: 07/30/23 12:18 LRN [id number]) Sensation Evaluation Gross Sensation Gross Sensation WNL PT-OP-J Posture/Palpation/Skin Start: 07/16/23 17:17 Freq: Status: Active Protocol: Document 07/30/23 11:17 LRN (Rec: 07/30/23 12:18 LRN [id number]) Posture Evaluation Position Standing Head/C-Spine Posture Forward Head Shoulder Posture (L) Elevated Arm Posture (L) Neutral,(R) Neutral Pelvis Posture Neutral Knee Posture (L) Genu Varus,(R) Genu Varus Palpation Assessment Location Thenar eminence Palpation Location Bilateral Thenar eminence Palpation Findings Tenderness PT-OP-K Range of Motion Start: 07/16/23 17:17 Freq: Status: Active Protocol: Document 08/13/23 11:19 LRN (Rec: 08/13/23 12:15 LRN [id number]) Thumb Goniometric Range of Motion Thumb Right Thumb ROM WFL No MCP Flexion Active (degrees) 54 MCP Extension Active (0 degrees) 0 IP Flexion Active (degrees) 50 IP Extension Active (degrees) 22 CMC Flexion Active (degrees) 20 CMC Extension Active (degrees) 20 Comments Oppositon normal. CMC flex is with stretch at joint. Thumb AD to 5th MCP palmar pad with tension at CMC jt. Left Thumb ROM WFL No MCP Flexion Active (degrees) 52 MCP Extension Active (0 degrees) 0 IP Flexion Active (degrees) 56 IP Extension Active (degrees) 10 CMC Flexion Active (degrees) 26 CMC Extension Active (degrees) 10 Comments Oppositon normal. Thumb AD to 5th MCP palmar pad without pain in thenar eminence. Note: Thenar eminence pain ( sometimes MCP jt pain) limiting thumb joint mobility. PT-OP-L Special Tests Start: 07/16/23 17:17 Freq: Status: Active Protocol: Document 07/30/23 11:17 LRN (Rec: 07/30/23 12:18 LRN [id number]) Special Tests Wrist/Hand Special Tests Grind TEst Test Results + Bilaterally, R worse than L PT-OP-M Strength Start: 07/16/23 17:17 Freq: Status: Active Protocol: Document 07/30/23 11:17 LRN (Rec: 07/30/23 12:18 LRN [id number]) Hand Nursing Home Director/Pinch Strength Hand Dominance Hand Dominance Right Hand Strength Right Nursing Home Director (lbs) 35 Tip Pinch (lbs) 2.5 Comments Pt Nursing Home Director strength avg is 14.6 kg R. Nursing Home Director strength avg for females 75+ is: 19.3 kgs R. Pinch strength avg for females 75+ is: 12.6 lbs R. Strength limited by thumb pain . Left Nursing Home Director (lbs) 20 Tip Pinch (lbs) 0 Comments Pt Nursing Home Director strength avg is 18 kg L. Nursing Home Director strength avg for females 75+ is: 17.1 kgs L. Pinch strength avg for females 75+ is: 11.4 lbs L. Strength limited by thumb pain . Knee Strength Knee Manual Muscle Testing Right Flexion (S2) 4 Good Extension (L3) 4 Good Left Flexion (S2) 5 Normal Extension (L3) 4+ Good+ PT-OP-Q Treatments Start: 07/16/23 17:17 Freq: Status: Active Protocol: Document 08/20/23 11:22 LRN (Rec: 08/20/23 12:22 LRN [id number]) Therapeutic Exercises Sitting Exercises Thumb strengthening Sitting Exercise Name L>R Thumb ARROM with manual resistance Side bilateral Reps/Minutes 10x reps, with extra time to determine support at CMC jt to avoid clicking. Comments PA at L CMC jt during thumb ext and AB. Hardeep test position stretch Sitting Exercise Name After Paraffin stretch. Side bilateral Reps/Minutes 10 SH x 10 Finger AB/AD Sitting Exercise Name After Paraffin-Finger AB/AD Side bilateral Reps/Minutes 3' Thumb AROM Sitting Exercise Name After Paraffin-L>R, Thumb AROM ext>flex: CMC, MCP, IP jts. Side bilateral Comments Cuing for end-range ext L thumb rolf Sitting Exercise Name L thumb Rolf Ext, AB Side left Reps/Minutes 8' Manual Therapy Treatment Manual Techniques MWM Type L thumb distraction with thumb flex (IP, MCP, CMC jt) Body Location L thumb Body Position Sitting Reps/Duration 15' Self-Care/Home Management Treatment Education Patient Education Pain Management Other Education Educated pt in pain management (knee) with RICE technique. Activities Self-Care/Home Management Activities Issued handout for RICE technique. PT-OP-R Modalities Start: 07/16/23 17:17 Freq: Status: Active Protocol: Document 08/20/23 11:22 LRN (Rec: 08/20/23 12:22 N [id number]) Paraffin Bath Treatment Right Hand Treatment Technique Immersion Bath Wax Temperature (degrees F) 120 Number Wax Layers (layers) 7 Patient Tolerance Good Left Hand Treatment Technique Immersion Bath Wax Temperature (degrees F) 120 Number Wax Layers (layers) 7 Patient Tolerance Good PT-OP-T Assessment and Plan Start: 07/16/23 17:17 Freq: Status: Active Protocol: Document 08/20/23 11:22 LRN (Rec: 08/20/23 12:22 N [id number]) Physical Therapy Assessment Goals Three Impairment Charissa knee pain limiting stair ambulation. Impairment Ascend/descends stairs with a step to gait. L knee pain rated 3/10, R knee pain rated 4/10. Short Term Goal (STG) Pt will be educated in self care of pain management (heat, RICE) and HEP of knee strengthening ex's. 08/20/23: Pt educated in RICE technique for pain management with handout issued. STG Duration 3 weeks-08/20/23 progressed 08/20/23 (discuss/educ use of heat) Assisted Goal (LTG) Improve knee strength to improve stair ambulation function to a step over step gait. LTG Duration 12 wks-10/25/23 Two Impairment Bilateral thumb pain interferring functional activities and sleep at night. Impairment Charissa thumb pain limiting ability to button tops & opening jars (pickle and Tide Pod). L>R thumb pain interrupting sleep at night. L thumb pain rated 7/10, R thumb pain rated 4/10. Short Term Goal (STG) Pt will be educated in HEP of pain management of self STM. 08/06/23: Education in self STM to thenar eminence of thumbs for pain relief. STG Duration 2 wks-08/13/23 (08/06/23: MET GOAL) Supervisor Communications [employer] Signals Goal (LTG) Pt will be educated in mobility ex's of the hands to improve function of buttoning and opening jars (pickle, Tide pods). 08/13/23: I/S pt thumb strengthening (ext/flex). 08/20/23: I/S in distraction L thumb while performing opposition (thumb to MCP jt 5th digit) LTG Duration 8 wks-09/27/23 progressed One Impairment Pt lacks appropriate self care HEP. Short Term Goal (STG) Pt will be educated in a self care treatment of edema/pain management (contrast bath). 07/30/23: Education in contrast bath. 08/06/23: Education in self STM to thenar eminence of thumbs for pain relief. STG Duration 1 wk-08/06/23 (08/06/23: MET GOAL) Assisted Goal (LTG) Pt will be educated in a modified gripping techniques to decrease pain with hand use . LTG Duration 8 wks-09/27/23 Assessment Summary Assessment 77 yo female with charissa thumb pain in the thenar eminence due to arthritic mechanical changes at the CMC and MCP jt and overuse of gripping from taking care of her spouse. She is improved in her ability to flex her L thumb IP jt w/o pain (ROM same). I was able for the first time with manual therapy (MWM) to get her to perform opposition of thumb to palmar MCP of little finger with reduced pain. Clicking from L CMC jt with opposition and AB is max reduced with stab from PA mob. Physical Therapy Plan Frequency and Duration Frequency of Treatment 2x/Week Duration of treatment (weeks) 12 Plan of Care Start Date 07/30/23 Plan of Care End Date 10/25/23 Next Visit Focus/Plan Next Note Type Treatment Note Next Visit Plan Next: START w/assess thumb strength, f/b educ in use of heat for pain mgmt. Paraffin Dip and ROM ex's. If pt brings gloves in, training for donning/doffing gloves with least amt of pain. Hand Rehab for thumbs (ROM/ strengthening) before charissa knee rehab. Ther Act: Educate and ex with use of modified gripping techiniques Ther Ex hands: mobility ex's to improve function of buttoning and opening jars ( pickle, Tide pods). POC: Paraffin Dip, ROM thumb, strengthening thumb and hand. Knee Rehab POC: Assess knees for pain (localized or diffuse ) and ROM and educate in self care RICE/MH to bilateral knees. Knee strengthening.
--- NOTE | 2023-08-27 11:18 | PT.OTN ---
Current Diagnoses Bilateral primary osteoarthritis of knee (08/27/23) Unilateral primary osteoarthritis of first carpometacarpal joint, unspecified hand (08/27/23) Other specified disorders of bone density and structure, unspecified site (08/27/23) Asymptomatic menopausal state (08/27/23) Physical Therapy Treatment Note PT-OP-A Visit Information Start: 07/16/23 17:17 Freq: Status: Active Protocol: Document 08/27/23 10:46 SP (Rec: 08/27/23 11:59 SP [id number]) Out-Patient Physical Therapy Visit Information Visit Information Visit Type Treatment Note Visit Note Pt 16 min late for appt, misheard voice message. Visit Start Time 10:46 Visit Stop Time 11:18 Visit Number Number of PLATE MAKER Visits 1 Evaluation Information Evaluation Date 07/30/23 Precautions Precautions Arthritis, back pain, new onset of dizziness with squatting PT-OP-B Current Condition Start: 07/16/23 17:17 Freq: Status: Active Protocol: Document 07/30/23 11:17 LRN (Rec: 07/30/23 12:18 LRN [id number]) Current Condition History of Current Condition Onset Date 08/2022 Current Complaints Franky thumb pain limiting ability to put gloves on, L keeps awake at night. History of Current Condition States she would like to focus therapy on her hands to start , and then her knees later. States she is being referred to therapy because she wanted ex's that could help her with weakness in the thumbs and if possible to help reduce bilateral thumb pain (L>R). States when putting on gloves to help her spouse, it is extremely painful to don > doff the gloves 1-2x/day ( gloves needed to clean spouse after BM and when putting on his nerve cream). States her thumb pain keeps her up at night. States franky knee pain since 2019 and has gradually worsened over time. States she is most limited in her abilty to walk for exercise and ambulate stairs. Is now ascending/descending with one step at time (90% of time, leading with L strong leg). Prior Treatments and Tests One injection in R knee 2019 that was helpful. Treatment Goals Patient/Caregiver Goals Pt goals: Exercises to strengthen the hands to improve functional activities (buttoning and opening jars - pickle & Tide pod containers). Exercises to strength knees to ambute stair with step over step gait. HEP. Personal Factors Other Personal Factors That May Effect Arthritis, Back pain since Therapy/Recovery 2019 from lifting w/c in & out of car (stiil doing), recent on set of ocassional intermittent dizziness ( squatting). PT-OP-C Subjective Start: 07/16/23 17:17 Freq: Status: Active Protocol: Document 08/27/23 10:46 SP (Rec: 08/27/23 11:59 SP [id number]) OP-PT Subjective Patient Comments Patient Comments Pt 16 min late for appt, misjudged time heard on voicemail. She reports compliant with HEP and feels gaining more ROM L opposition and adduction, both don't hurt as much more dull ache. Still pain compression socks most difficulty, needs put gloves on to support don cream due to bennett her skin need barrier. PT-OP-H Neuro Start: 07/16/23 17:17 Freq: Status: Active Protocol: Document 07/30/23 11:17 LRN (Rec: 07/30/23 12:18 LRN [id number]) Sensation Evaluation Gross Sensation Gross Sensation WNL PT-OP-J Posture/Palpation/Skin Start: 07/16/23 17:17 Freq: Status: Active Protocol: Document 07/30/23 11:17 LRN (Rec: 07/30/23 12:18 LRN [id number]) Posture Evaluation Position Standing Head/C-Spine Posture Forward Head Shoulder Posture (L) Elevated Arm Posture (L) Neutral,(R) Neutral Pelvis Posture Neutral Knee Posture (L) Genu Varus,(R) Genu Varus Palpation Assessment Location Thenar eminence Palpation Location Bilateral Thenar eminence Palpation Findings Tenderness PT-OP-K Range of Motion Start: 07/16/23 17:17 Freq: Status: Active Protocol: Document 08/13/23 11:19 LRN (Rec: 08/13/23 12:15 LRN [id number]) Thumb Goniometric Range of Motion Thumb Right Thumb ROM WFL No MCP Flexion Active (degrees) 54 MCP Extension Active (0 degrees) 0 IP Flexion Active (degrees) 50 IP Extension Active (degrees) 22 CMC Flexion Active (degrees) 20 CMC Extension Active (degrees) 20 Comments Oppositon normal. CMC flex is with stretch at joint. Thumb AD to 5th MCP palmar pad with tension at CMC jt. Left Thumb ROM WFL No MCP Flexion Active (degrees) 52 MCP Extension Active (0 degrees) 0 IP Flexion Active (degrees) 56 IP Extension Active (degrees) 10 CMC Flexion Active (degrees) 26 CMC Extension Active (degrees) 10 Comments Oppositon normal. Thumb AD to 5th MCP palmar pad without pain in thenar eminence. Note: Thenar eminence pain ( sometimes MCP jt pain) limiting thumb joint mobility. PT-OP-L Special Tests Start: 07/16/23 17:17 Freq: Status: Active Protocol: Document 07/30/23 11:17 LRN (Rec: 07/30/23 12:18 LRN [id number]) Special Tests Wrist/Hand Special Tests Grind TEst Test Results + Bilaterally, R worse than L PT-OP-M Strength Start: 07/16/23 17:17 Freq: Status: Active Protocol: Document 07/30/23 11:17 LRN (Rec: 07/30/23 12:18 LRN [id number]) Hand Nut Processing Supervisor/Pinch Strength Hand Dominance Hand Dominance Right Hand Strength Right Nut Processing Supervisor (lbs) 35 Tip Pinch (lbs) 2.5 Comments Pt Nut Processing Supervisor strength avg is 14.6 kg R. Nut Processing Supervisor strength avg for females 75+ is: 19.3 kgs R. Pinch strength avg for females 75+ is: 12.6 lbs R. Strength limited by thumb pain . Left Nut Processing Supervisor (lbs) 20 Tip Pinch (lbs) 0 Comments Pt Nut Processing Supervisor strength avg is 18 kg L. Nut Processing Supervisor strength avg for females 75+ is: 17.1 kgs L. Pinch strength avg for females 75+ is: 11.4 lbs L. Strength limited by thumb pain . Knee Strength Knee Manual Muscle Testing Right Flexion (S2) 4 Good Extension (L3) 4 Good Left Flexion (S2) 5 Normal Extension (L3) 4+ Good+ PT-OP-Q Treatments Start: 07/16/23 17:17 Freq: Status: Active Protocol: Document 08/27/23 10:46 SP (Rec: 08/27/23 11:59 SP [id number]) Therapeutic Exercises Sitting Exercises Finger AB/AD Sitting Exercise Name After Paraffin-Finger AB/AD Side bilateral Equipment Used palm facing each other thumb ceiling<> pinky Reps/Minutes 2x10 reps Comments reports achy & tiring thenareminence at 1st MCP at CMC Thumb AROM Sitting Exercise Name After Paraffin-L>R, Thumb AROM 1. ext>flex: CMC, MCP, IP jts 2. opposition Side bilateral Reps/Minutes 1. 10 reps 2. 5 reps x2 Comments Cuing for end-range, improved R MCP ext = L, able opp to base of 5th IP jt Manual Therapy Treatment Soft Tissue Mobilization L Thenar eminence Body Location L Thenar [place], and thumb AD/web space Mobilization Type Sustained Pressure,Other Intensity/Depth mod Body Position Sitting Comments MWM (palm face up rested on table) opp index finger into thenar [place] AP pressure AROM 1st MCP abd/add, flex/ext , opposition small range good muscle active massage, better than pushing around doesn't seem do anything Joint Mobilizations 1st MCP Bilateral Joint CMC, IP, DIP Direction A<>P, med/lat, rotation /c opp hand Grade II Body Position seated Reps/Duration 4' total Comments ed, manual, self application- forearm against abdomen mob glides with opp hand: IP jt and DIP jt (1-4 finger flexion to stabilize distal shaft to IP jt), good feedback response . PT-OP-R Modalities Start: 07/16/23 17:17 Freq: Status: Active Protocol: Document 08/27/23 10:46 SP (Rec: 08/27/23 11:59 SP [id number]) Paraffin Bath Treatment Right Hand Treatment Technique Immersion Bath Wax Temperature (degrees F) 120 Number Wax Layers (layers) 7 Patient Tolerance Good Left Hand Treatment Technique Immersion Bath Wax Temperature (degrees F) 120 Number Wax Layers (layers) 7 Patient Tolerance Good PT-OP-T Assessment and Plan Start: 07/16/23 17:17 Freq: Status: Active Protocol: Document 08/27/23 10:46 SP (Rec: 08/27/23 11:59 SP [id number]) Physical Therapy Assessment Goals Three Impairment Franky knee pain limiting stair ambulation. Impairment Ascend/descends stairs with a step to gait. L knee pain rated 3/10, R knee pain rated 4/10. Short Term Goal (STG) Pt will be educated in self care of pain management (heat, RICE) and HEP of knee strengthening ex's. 08/20/23: Pt educated in RICE technique for pain management with handout issued. STG Duration 3 weeks-08/20/23 progressed 08/20/23 (discuss/educ use of heat) Mcc Goal (LTG) Improve knee strength to improve stair ambulation function to a step over step gait. LTG Duration 12 wks-10/25/23 Two Impairment Bilateral thumb pain interferring functional activities and sleep at night. Impairment Franky thumb pain limiting ability to button tops & opening jars (pickle and Tide Pod). L>R thumb pain interrupting sleep at night. L thumb pain rated 7/10, R thumb pain rated 4/10. Short Term Goal (STG) Pt will be educated in HEP of pain management of self STM. 08/06/23: Education in self STM to thenar eminence of thumbs for pain relief. STG Duration 2 wks-08/13/23 (08/06/23: MET GOAL) Mcc Goal (LTG) Pt will be educated in mobility ex's of the hands to improve function of buttoning and opening jars (pickle, Tide pods). 08/13/23: I/S pt thumb strengthening (ext/flex). 08/20/23: I/S in distraction L thumb while performing opposition (thumb to MCP jt 5th digit) 08/27/23: instruction/demo/ peroformance MWM STMs and jt glides into thumb flexion and opposition, improved ROM reports with less achiness. LTG Duration 8 wks-09/27/23 progressed 08/27/23 One Impairment Pt lacks appropriate self care HEP. Short Term Goal (STG) Pt will be educated in a self care treatment of edema/pain management (contrast bath). 07/30/23: Education in contrast bath. 08/06/23: Education in self STM to thenar eminence of thumbs for pain relief. STG Duration 1 wk-08/06/23 (08/06/23: MET GOAL) Mcc Goal (LTG) Pt will be educated in a modified gripping techniques to decrease pain with hand use . LTG Duration 8 wks-09/27/23 Assessment Summary Assessment Pt late for appt, limited time . Tx focused on manual then self carryover MWM STMs and CMC/IP/DIP mobs with support of opposite UE with reports of improved ROM and slight lessening achiness end to end feel 1st MCP flexion and opposition to base of 5th finger which stated has been able to do until now. Instruction perform into flexion as well hands facing each other rested ontable to allow isolating 1st MCP AROM. Reports 1st MCP and intrinsic muscles sore but pleased with progress making. Physical Therapy Plan Frequency and Duration Frequency of Treatment 2x/Week Duration of treatment (weeks) 12 Plan of Care Start Date 07/30/23 Plan of Care End Date 10/25/23 Therapeutic Interventions Therapeutic Interventions Gait Training,Home Exercise Program,Joint Mobilizations, Manual Therapy,Self-Care/Home Management,Soft Tissue Mobilization,Taping, Therapeutic Activities, Therapeutic Exercises Modalities Cold Pack/Ice Massage,Hot Packs,Paraffin Bath,Ultrasound Next Visit Focus/Plan Next Note Type Treatment Note Next Visit Plan Next: START w/assess thumb ROM (base 5th MCP?) and strength before Paraffin Dip and ROM ex's. COntinue educ in use of heat for pain mgmt. If pt brings gloves in, training for donning/doffing gloves with least amt of pain. Hand Rehab for thumbs (ROM/ strengthening) before franky knee rehab. Ther Act: Educate and ex with use of modified gripping techiniques Ther Ex hands: mobility ex's to improve function of buttoning and opening jars ( pickle, Tide pods). POC: Paraffin Dip, ROM thumb, strengthening thumb and hand. Knee Rehab POC: Assess knees for pain (localized or diffuse ) and ROM and educate in self care RICE/MH to bilateral knees. Knee strengthening.
--- NOTE | 2023-09-06 12:21 | PT.OTN ---
Current Diagnoses Bilateral primary osteoarthritis of knee (09/06/23) Unilateral primary osteoarthritis of first carpometacarpal joint, unspecified hand (09/06/23) Other specified disorders of bone density and structure, unspecified site (09/06/23) Asymptomatic menopausal state (09/06/23) Physical Therapy Treatment Note PT-OP-A Visit Information Start: 07/16/23 17:17 Freq: Status: Active Protocol: Document 09/06/23 11:19 LRN (Rec: 09/06/23 12:16 LRN [id number]) Out-Patient Physical Therapy Visit Information Visit Information Visit Type Treatment Note Visit Start Time 11:19 Visit Stop Time 11:58 Visit Number Evaluation Information Evaluation Date 07/30/23 Precautions Precautions Arthritis, back pain, new onset of dizziness with squatting PT-OP-B Current Condition Start: 07/16/23 17:17 Freq: Status: Active Protocol: Document 07/30/23 11:17 LRN (Rec: 07/30/23 12:18 LRN [id number]) Current Condition History of Current Condition Onset Date 08/2022 Current Complaints Farnky thumb pain limiting ability to put gloves on, L keeps awake at night. History of Current Condition States she would like to focus therapy on her hands to start , and then her knees later. States she is being referred to therapy because she wanted ex's that could help her with weakness in the thumbs and if possible to help reduce bilateral thumb pain (L>R). States when putting on gloves to help her spouse, it is extremely painful to don > doff the gloves 1-2x/day ( gloves needed to clean spouse after BM and when putting on his nerve cream). States her thumb pain keeps her up at night. States franky knee pain since 2019 and has gradually worsened over time. States she is most limited in her abilty to walk for exercise and ambulate stairs. Is now ascending/descending with one step at time (90% of time, leading with L strong leg). Prior Treatments and Tests One injection in R knee 2019 that was helpful. Treatment Goals Patient/Caregiver Goals Pt goals: Exercises to strengthen the hands to improve functional activities (buttoning and opening jars - pickle & Tide pod containers). Exercises to strength knees to ambute stair with step over step gait. HEP. Personal Factors Other Personal Factors That May Effect Arthritis, Back pain since Therapy/Recovery 2019 from lifting w/c in & out of car (stiil doing), recent on set of ocassional intermittent dizziness ( squatting). PT-OP-C Subjective Start: 07/16/23 17:17 Freq: Status: Active Protocol: Document 09/06/23 11:19 LRN (Rec: 09/06/23 12:16 LRN [id number]) OP-PT Subjective Patient Comments Patient Comments Pt states she can move her thumbs better. No longer sharp pain, only dull ache. States she can open jars and tide pods and can button clothes. Is able now able to put spouse's compression socks and and don rubber gloves. PT-OP-H Neuro Start: 07/16/23 17:17 Freq: Status: Active Protocol: Document 07/30/23 11:17 LRN (Rec: 07/30/23 12:18 LRN [id number]) Sensation Evaluation Gross Sensation Gross Sensation WNL PT-OP-J Posture/Palpation/Skin Start: 07/16/23 17:17 Freq: Status: Active Protocol: Document 07/30/23 11:17 LRN (Rec: 07/30/23 12:18 LRN [id number]) Posture Evaluation Position Standing Head/C-Spine Posture Forward Head Shoulder Posture (L) Elevated Arm Posture (L) Neutral,(R) Neutral Pelvis Posture Neutral Knee Posture (L) Genu Varus,(R) Genu Varus Palpation Assessment Location Thenar eminence Palpation Location Bilateral Thenar eminence Palpation Findings Tenderness PT-OP-K Range of Motion Start: 07/16/23 17:17 Freq: Status: Active Protocol: Document 09/06/23 11:19 LRN (Rec: 09/06/23 12:16 LRN [id number]) Thumb Goniometric Range of Motion Thumb Right Thumb ROM WFL No MCP Flexion Active (degrees) 64 MCP Extension Active (0 degrees) 0 IP Flexion Active (degrees) 64 IP Extension Active (degrees) 39 CMC Flexion Active (degrees) 24 CMC Extension Active (degrees) 24 Comments Oppositon normal. No pain with CMC flex stretch and thumb AD to 5th MCP palmar pad. Left Thumb ROM WFL No MCP Flexion Active (degrees) 60 MCP Extension Active (0 degrees) 0 IP Flexion Active (degrees) 60 IP Extension Active (degrees) 0 CMC Flexion Active (degrees) 26 CMC Extension Active (degrees) 30 Comments Oppositon normal. No pain with CMC flex stretch and thumb AD to 5th MCP palmar pad. PT-OP-L Special Tests Start: 07/16/23 17:17 Freq: Status: Active Protocol: Document 07/30/23 11:17 LRN (Rec: 07/30/23 12:18 LRN [id number]) Special Tests Wrist/Hand Special Tests Grind TEst Test Results + Bilaterally, R worse than L PT-OP-M Strength Start: 07/16/23 17:17 Freq: Status: Active Protocol: Document 09/06/23 11:19 LRN (Rec: 09/06/23 12:16 LRN [id number]) Hand Form Worker/Pinch Strength Hand Dominance Hand Dominance Right PT-OP-Q Treatments Start: 07/16/23 17:17 Freq: Status: Active Protocol: Document 09/06/23 11:19 LRN (Rec: 09/06/23 12:16 LRN [id number]) Therapeutic Exercises Sitting Exercises Thumb strengthening Sitting Exercise Name L>R Thumb ARROM with manual resistance Side bilateral Reps/Minutes 10x reps, with extra time to determine support at CMC jt to avoid clicking. Comments PA at L CMC jt during thumb ext and AB. Thumb AROM Sitting Exercise Name After Paraffin-L>R, Thumb AROM 1. ext>flex: CMC, MCP, IP jts 2. opposition Side bilateral Reps/Minutes 1. 10 reps 2. 5 reps x2 Comments Cuing for end-range, improved R MCP ext = L, able opp to base of 5th IP jt Manual Therapy Treatment Joint Mobilizations 1st MCP Bilateral Joint Franky thumb CMC, IP, DIP jts - JMT & PROM stretch Direction A<>P, med/lat, flex stretch Grade II Body Position seated Reps/Duration 19' total Comments ROM taken Self-Care/Home Management Treatment Education Other Education Educated pt in modifying objects gripping to make wider , or use devices to help hold lids to decrease pain with hand use. Educated pt in use of MH for pain management of the hands and knees and to use before ROM exercise. PT-OP-R Modalities Start: 07/16/23 17:17 Freq: Status: Active Protocol: Document 09/06/23 11:19 LRN (Rec: 09/06/23 12:16 LRN [id number]) Paraffin Bath Treatment Right Hand Treatment Technique Immersion Bath Wax Temperature (degrees F) 120 Number Wax Layers (layers) 7 Patient Tolerance Good Left Hand Treatment Technique Immersion Bath Wax Temperature (degrees F) 120 Number Wax Layers (layers) 7 Patient Tolerance Good PT-OP-T Assessment and Plan Start: 07/16/23 17:17 Freq: Status: Active Protocol: Document 09/06/23 11:19 LRN (Rec: 09/06/23 12:16 LRN [id number]) Physical Therapy Assessment Goals Three Impairment Franky knee pain limiting stair ambulation. Impairment Ascend/descends stairs with a step to gait. L knee pain rated 3/10, R knee pain rated 4/10. Short Term Goal (STG) Pt will be educated in self care of pain management (heat, RICE) and HEP of knee strengthening ex's. 08/20/23: Pt educated in RICE technique for pain management with handout issued. 09/06/23: Pt educated in use of MH prior to ROM and for hands to decrease arthritic pain. STG Duration 3 weeks-08/20/23 (09/06/23: MET GOAL) Early Childhood Associate Teacher Goal (LTG) Improve knee strength to improve stair ambulation function to a step over step gait. LTG Duration 12 wks-10/25/23 Two Impairment Bilateral thumb pain interferring functional activities and sleep at night. Impairment Franky thumb pain limiting ability to button tops & opening jars (pickle and Tide Pod). L>R thumb pain interrupting sleep at night. L thumb pain rated 7/10, R thumb pain rated 4/10. Short Term Goal (STG) Pt will be educated in HEP of pain management of self STM. 08/06/23: Education in self STM to thenar eminence of thumbs for pain relief. STG Duration 2 wks-08/13/23 (08/06/23: MET GOAL) Residential Goal (LTG) Pt will be educated in mobility ex's of the hands to improve function of buttoning and opening jars (pickle, Tide pods). 08/13/23: I/S pt thumb strengthening (ext/flex). 08/20/23: I/S in distraction L thumb while performing opposition (thumb to MCP jt 5th digit) 08/27/23: instruction/demo/ peroformance MWM STMs and jt glides into thumb flexion and opposition, improved ROM reports with less achiness. LTG Duration 8 wks-09/27/23 (09/06/23: MET GOAL) One Impairment Pt lacks appropriate self care HEP. Short Term Goal (STG) Pt will be educated in a self care treatment of edema/pain management (contrast bath). 07/30/23: Education in contrast bath. 08/06/23: Education in self STM to thenar eminence of thumbs for pain relief. STG Duration 1 wk-08/06/23 (08/06/23: MET GOAL) Residential Goal (LTG) Pt will be educated in a modified gripping techniques to decrease pain with hand use . LTG Duration 8 wks-09/27/23 (09/06/23: MET GOAL) Assessment Summary Assessment 77 yo female with franky thumb pain in the thenar eminence due to arthritic mechanical changes at the CMC and MCP jt and overuse of gripping from taking care of her spouse. She now appears to have functional strength and ROM with her hands. She has achieved her hand goals and has been educated in a self care HEP. She is now ready to address her bilateral knee pain that is interferring with functional ambulation on stairs due to pain. Physical Therapy Plan Frequency and Duration Frequency of Treatment 2x/Week Duration of treatment (weeks) 12 Plan of Care Start Date 07/30/23 Plan of Care End Date 10/25/23 Next Visit Focus/Plan Next Note Type Treatment Note Next Visit Plan Next: Start knee rehab. Possible DC in 2 visits, or PN for new POC. Knee Rehab POC: Assess knees for pain (localized or diffuse ) and ROM; educate in self care RICE/MH to bilateral knees. Knee strengthening.
--- NOTE | 2023-09-09 12:41 | PT.OTN ---
Current Diagnoses Bilateral primary osteoarthritis of knee (09/09/23) Unilateral primary osteoarthritis of first carpometacarpal joint, unspecified hand (09/09/23) Other specified disorders of bone density and structure, unspecified site (09/09/23) Asymptomatic menopausal state (09/09/23) Physical Therapy Treatment Note PT-OP-A Visit Information Start: 07/16/23 17:17 Freq: Status: Active Protocol: Document 09/09/23 09:47 LRN (Rec: 09/09/23 09:55 LRN [id number]) Out-Patient Physical Therapy Visit Information Visit Information Visit Type Treatment Note Visit Start Time 09:49 Visit Stop Time 10:27 Visit Number Evaluation Information Evaluation Date 07/30/23 Precautions Precautions Arthritis, back pain, new onset of dizziness with squatting PT-OP-B Current Condition Start: 07/16/23 17:17 Freq: Status: Active Protocol: Document 07/30/23 11:17 LRN (Rec: 07/30/23 12:18 LRN [id number]) Current Condition History of Current Condition Onset Date 08/2022 Current Complaints Franky thumb pain limiting ability to put gloves on, L keeps awake at night. History of Current Condition States she would like to focus therapy on her hands to start , and then her knees later. States she is being referred to therapy because she wanted ex's that could help her with weakness in the thumbs and if possible to help reduce bilateral thumb pain (L>R). States when putting on gloves to help her spouse, it is extremely painful to don > doff the gloves 1-2x/day ( gloves needed to clean spouse after BM and when putting on his nerve cream). States her thumb pain keeps her up at night. States franky knee pain since 2019 and has gradually worsened over time. States she is most limited in her abilty to walk for exercise and ambulate stairs. Is now ascending/descending with one step at time (90% of time, leading with L strong leg). Prior Treatments and Tests One injection in R knee 2019 that was helpful. Treatment Goals Patient/Caregiver Goals Pt goals: Exercises to strengthen the hands to improve functional activities (buttoning and opening jars - pickle & Tide pod containers). Exercises to strength knees to ambute stair with step over step gait. HEP. Personal Factors Other Personal Factors That May Effect Arthritis, Back pain since Therapy/Recovery 2019 from lifting w/c in & out of car (stiil doing), recent on set of ocassional intermittent dizziness ( squatting). PT-OP-C Subjective Start: 07/16/23 17:17 Freq: Status: Active Protocol: Document 09/09/23 09:47 LRN (Rec: 09/09/23 09:55 LRN [id number]) OP-PT Subjective Patient Comments Patient Comments States she knows she lacks cartilage of the knees, causing the knee pain. Feels PT will not be able to help; therefore she doesn't want to do rehab for her knees but is willing to be set up on a HEP of ex's for her knees. Patient Questionnaires Lower Extremity Functional Scale LEFS Score 36 OP-PT Pain Assessment Location R knee Pain Location Details Diffuse anterior knee pain. Intensity 3 Scale Used Numeric (0 - 10) Description- Other Sharp, stabbing with stairs, otherwise pn burning, aching, throbbing. L knee Pain Location Details Diffuse anterior knee pain. Intensity 6 Scale Used Numeric (0 - 10) Description- Other Sharp, stabbing with stairs, otherwise pn burning, aching, throbbing. PT-OP-H Neuro Start: 07/16/23 17:17 Freq: Status: Active Protocol: Document 07/30/23 11:17 LRN (Rec: 07/30/23 12:18 LRN [id number]) Sensation Evaluation Gross Sensation Gross Sensation WNL PT-OP-J Posture/Palpation/Skin Start: 07/16/23 17:17 Freq: Status: Active Protocol: Document 07/30/23 11:17 LRN (Rec: 07/30/23 12:18 LRN [id number]) Posture Evaluation Position Standing Head/C-Spine Posture Forward Head Shoulder Posture (L) Elevated Arm Posture (L) Neutral,(R) Neutral Pelvis Posture Neutral Knee Posture (L) Genu Varus,(R) Genu Varus Palpation Assessment Location Thenar eminence Palpation Location Bilateral Thenar eminence Palpation Findings Tenderness PT-OP-K Range of Motion Start: 07/16/23 17:17 Freq: Status: Active Protocol: Document 09/09/23 09:47 LRN (Rec: 09/09/23 09:55 LRN [id number]) Knee Goniometric Range of Motion Knee Right Patient Position Supine Flexion Active (degrees) 135 Extension Active (degrees) 3 Comments ROM w/o pain: Flexion Active: 122 deg Pt reporting more burning sensation at knee with knee in full extension vs flexed. Left Patient Position Supine Flexion Active (degrees) 132 Extension Active (degrees) 3 Comments ROM w/o pain: Flexion Active: 132 deg Pt reporting more burning sensation at knee with knee in full extension vs flexed. PT-OP-L Special Tests Start: 07/16/23 17:17 Freq: Status: Active Protocol: Document 09/09/23 09:47 LRN (Rec: 09/09/23 10:11 LRN [id number]) Special Tests Knee Special Tests Varus- 0 Degrees Test Results - bilaterally Valgus- 0 Degrees Test Results + right Posterior Draw Test Results - bilaterally Delfina Test Test Results + right Anterior Draw Test Results - bilaterally Patellar Grind Test Test Results + right knee Comments Pain with compression on R knee. PT-OP-M Strength Start: 07/16/23 17:17 Freq: Status: Active Protocol: Document 09/09/23 09:47 LRN (Rec: 09/09/23 09:55 N [id number]) Knee Strength Knee Manual Muscle Testing Right Flexion (S2) 4+ Good+ Extension (L3) 5 Normal Comments Burning pain in knee with MMT. Left Flexion (S2) 5 Normal Extension (L3) 5 Normal Comments Burning pain in knee with MMT. PT-OP-Q Treatments Start: 07/16/23 17:17 Freq: Status: Active Protocol: Document 09/09/23 09:47 LRN (Rec: 09/09/23 10:11 LRN [id number]) Therapeutic Exercises Supine Exercises Knee PROM Supine Exercise Name Knee PROM Side bilateral Reps/Minutes 4' Comments PROM came with burning pain at knee joint. ROM taken Active knee ROM Supine Exercise Name Knee AROM Side bilateral Reps/Minutes 6' Comments Pt limited with knee ROM when done painfree. ROM taken SLR Supine Exercise Name SLR (LE at 12 & 2 O'Clock) Side bilateral Reps/Minutes 8x each Comments Fatigues R>L. Extra time taken to deter max leg lift & max deja to exercise Sitting Exercises Knee flex Sitting Exercise Name Knee flex w/manual resist Side bilateral Comments Low tolerance to activity, MMT taken Knee ext Sitting Exercise Name Knee ext w/manual resist Side bilateral Comments Low tolerance to activity, MMT taken Standing Exercises Hip Ext Standing Exercise Name hip ext Side bilateral Equipment Used railing Reps/Minutes 5x each x 4 Comments Extra time taken to determine max deja'd positioning and ex tolerance Hip AB/AD strengthening Standing Exercise Name hip AB/AD lifts to tolerance, switching legs when standing leg gets tired. Side bilateral Equipment Used railing Reps/Minutes 5x each x 4 Comments Much extra time taken to determine max deja'd positioning and ex tolerance Self-Care/Home Management Treatment Education Patient Education Home Exercise Program Activities Self-Care/Home Management Activities Issued & reviewed HEP: SLR ( foot at 12 & 2 O'Clock Position), standing hip AB, hip AD, hip Ext. Pt I/S to hold onto object for support/ balance. PT-OP-R Modalities Start: 07/16/23 17:17 Freq: Status: Active Protocol: Document 09/06/23 11:19 LRN (Rec: 09/06/23 12:16 LRN [id number]) Paraffin Bath Treatment Right Hand Treatment Technique Immersion Bath Wax Temperature (degrees F) 120 Number Wax Layers (layers) 7 Patient Tolerance Good Left Hand Treatment Technique Immersion Bath Wax Temperature (degrees F) 120 Number Wax Layers (layers) 7 Patient Tolerance Good PT-OP-T Assessment and Plan Start: 07/16/23 17:17 Freq: Status: Active Protocol: Document 09/09/23 09:47 LRN (Rec: 09/09/23 09:55 LRN [id number]) Physical Therapy Assessment Goals Three Impairment Franky knee pain limiting stair ambulation. Impairment Ascend/descends stairs with a step to gait. L knee pain rated 3/10, R knee pain rated 4/10. Short Term Goal (STG) Pt will be educated in self care of pain management (heat, RICE) and HEP of knee strengthening ex's. 08/20/23: Pt educated in RICE technique for pain management with handout issued. 09/06/23: Pt educated in use of MH prior to ROM and for hands to decrease arthritic pain. STG Duration 3 weeks-08/20/23 (09/06/23: MET GOAL) [facility] Goal (LTG) Improve knee strength to improve stair ambulation function to a step over step gait. 09/09/23: L knee pain rated 3 /10, R knee pain rated 6/10. LTG Duration 12 wks-10/25/23 Assessment Summary Assessment 77 yo female with franky thumb pain in the thenar eminence due to arthritic mechanical changes at the CMC and MCP jt and overuse of gripping from taking care of her spouse. She now appears to have functional strength and ROM with her hands. Pt's R knee is more painful than the L knee and may have a soft tissue dysfunction on the medial side (MCL or medial meniscus) as indicated with a + Valgus stress test (knee in full extension) and + Delfina Test. R knee pain has worsened and although her LEFS score has improved, she is still at 40-59% impaired function. The pt has decreased tolerance to SLS for hip exercise and may do better with sidelie, prone ex for hip/knee strengthening. Will try open chain knee strengthening for possible HEP . Physical Therapy Plan Frequency and Duration Frequency of Treatment 2x/Week Duration of treatment (weeks) 12 Plan of Care Start Date 07/30/23 Plan of Care End Date 10/25/23 Next Visit Focus/Plan Next Note Type Discharge Summary Next Visit Plan Next: DC after: assess stairs, issue HEP: Knee sitting open chain strengthening and if standing hip ex's causing more knee pain, try sidelie and prone hip strengthening. Educate in self care RICE/MH to bilateral knees. Discuss possible meniscus, lateral collateral lig dysfunction.
--- NOTE | 2023-09-19 15:37 | PT.OTN ---
Current Diagnoses Bilateral primary osteoarthritis of knee (09/19/23) Unilateral primary osteoarthritis of first carpometacarpal joint, unspecified hand (09/19/23) Other specified disorders of bone density and structure, unspecified site (09/19/23) Asymptomatic menopausal state (09/19/23) Physical Therapy Treatment Note PT-OP-A Visit Information Start: 07/16/23 17:17 Freq: Status: Active Protocol: Document 09/19/23 14:32 LRN (Rec: 09/19/23 15:01 LRN [id number]) Out-Patient Physical Therapy Visit Information Visit Information Visit Type Treatment Note Visit Start Time 14:32 Visit Stop Time 14:13 Visit Number Evaluation Information Evaluation Date 07/30/23 Precautions Precautions Arthritis, back pain, new onset of dizziness with squatting PT-OP-B Current Condition Start: 07/16/23 17:17 Freq: Status: Active Protocol: Document 07/30/23 11:17 LRN (Rec: 07/30/23 12:18 LRN [id number]) Current Condition History of Current Condition Onset Date 08/2022 Current Complaints Franky thumb pain limiting ability to put gloves on, L keeps awake at night. History of Current Condition States she would like to focus therapy on her hands to start , and then her knees later. States she is being referred to therapy because she wanted ex's that could help her with weakness in the thumbs and if possible to help reduce bilateral thumb pain (L>R). States when putting on gloves to help her spouse, it is extremely painful to don > doff the gloves 1-2x/day ( gloves needed to clean spouse after BM and when putting on his nerve cream). States her thumb pain keeps her up at night. States franky knee pain since 2019 and has gradually worsened over time. States she is most limited in her abilty to walk for exercise and ambulate stairs. Is now ascending/descending with one step at time (90% of time, leading with L strong leg). Prior Treatments and Tests One injection in R knee 2019 that was helpful. Treatment Goals Patient/Caregiver Goals Pt goals: Exercises to strengthen the hands to improve functional activities (buttoning and opening jars - pickle & Tide pod containers). Exercises to strength knees to ambute stair with step over step gait. HEP. Personal Factors Other Personal Factors That May Effect Arthritis, Back pain since Therapy/Recovery 2019 from lifting w/c in & out of car (stiil doing), recent on set of ocassional intermittent dizziness ( squatting). PT-OP-C Subjective Start: 07/16/23 17:17 Freq: Status: Active Protocol: Document 09/19/23 14:32 LRN (Rec: 09/19/23 15:01 LRN [id number]) OP-PT Subjective Patient Comments Patient Comments States she is ready for discharge to [facility]. States her hands are doing good. Her knee was doing good until the weather changed. R knee is pretty sore, rated 6-7/10. Patient Questionnaires Lower Extremity Functional Scale LEFS Score 46 LEFS Impairment 40 to 59% Impaired (Score 32- 47) Quick Dash- Upper Extremity Quick Dash UE Score 7.5 Quick Dash UE Impairment 1 to 19% Impaired (Score 1-19) PT-OP-H Neuro Start: 07/16/23 17:17 Freq: Status: Active Protocol: Document 07/30/23 11:17 LRN (Rec: 07/30/23 12:18 LRN [id number]) Sensation Evaluation Gross Sensation Gross Sensation WNL PT-OP-J Posture/Palpation/Skin Start: 07/16/23 17:17 Freq: Status: Active Protocol: Document 07/30/23 11:17 LRN (Rec: 07/30/23 12:18 LRN [id number]) Posture Evaluation Position Standing Head/C-Spine Posture Forward Head Shoulder Posture (L) Elevated Arm Posture (L) Neutral,(R) Neutral Pelvis Posture Neutral Knee Posture (L) Genu Varus,(R) Genu Varus Palpation Assessment Location Thenar eminence Palpation Location Bilateral Thenar eminence Palpation Findings Tenderness PT-OP-K Range of Motion Start: 07/16/23 17:17 Freq: Status: Active Protocol: Document 09/19/23 14:32 LRN (Rec: 09/19/23 15:01 LRN [id number]) Knee Goniometric Range of Motion Knee Right Patient Position Supine Flexion Active (degrees) 135 Extension Active (degrees) 3 Comments At rest and any movment causes knee pain. Crossing legs reduces knee pain. Left Patient Position Supine Flexion Active (degrees) 116 Extension Active (degrees) 3 Comments Painfree range above. PT-OP-L Special Tests Start: 07/16/23 17:17 Freq: Status: Active Protocol: Document 09/09/23 09:47 LRN (Rec: 09/09/23 10:11 LRN [id number]) Special Tests Knee Special Tests Varus- 0 Degrees Test Results - bilaterally Valgus- 0 Degrees Test Results + right Posterior Draw Test Results - bilaterally Delfina Test Test Results + right Anterior Draw Test Results - bilaterally Patellar Grind Test Test Results + right knee Comments Pain with compression on R knee. PT-OP-M Strength Start: 07/16/23 17:17 Freq: Status: Active Protocol: Document 09/09/23 09:47 LRN (Rec: 09/09/23 09:55 LRN [id number]) Knee Strength Knee Manual Muscle Testing Right Flexion (S2) 4+ Good+ Extension (L3) 5 Normal Comments Burning pain in knee with MMT. Left Flexion (S2) 5 Normal Extension (L3) 5 Normal Comments Burning pain in knee with MMT. PT-OP-Q Treatments Start: 07/16/23 17:17 Freq: Status: Active Protocol: Document 09/19/23 14:32 LRN (Rec: 09/19/23 15:01 LRN [id number]) Therapeutic Exercises Supine Exercises Quad set Supine Exercise Name Quad Set Side right Reps/Minutes 5-10 SH x 15 Gait Training Gait Activity Stair amb Description up/down 4 steps Device Used railing Level of Assistance none Distance/Duration 1x Treatment Focus gait w/o pain. Self-Care/Home Management Treatment Education Patient Education Home Exercise Program Activities Self-Care/Home Management Activities Issued HEP: Quad set PT-OP-R Modalities Start: 07/16/23 17:17 Freq: Status: Active Protocol: Document 09/19/23 14:32 LRN (Rec: 09/19/23 15:05 LRN [id number]) Ultrasound Therapy Treatment Right Knee Patient Position Supine Coupling Medium Ultrasound Gel Applicator Size (cm2) 10 Frequency Setting (mHz) 1 Mode Setting Pulsed Duty Cycle 50% Intensity Setting (w/cm2) 1.5 PT-OP-T Assessment and Plan Start: 07/16/23 17:17 Freq: Status: Active Protocol: Document 09/19/23 14:32 LRN (Rec: 09/19/23 15:01 LRN [id number]) Physical Therapy Assessment Goals Three Impairment Franky knee pain limiting stair ambulation. Impairment Ascend/descends stairs with a step to gait. L knee pain rated 3/10, R knee pain rated 4/10. Short Term Goal (STG) Pt will be educated in self care of pain management (heat, RICE) and HEP of knee strengthening ex's. 08/20/23: Pt educated in RICE technique for pain management with handout issued. 09/06/23: Pt educated in use of MH prior to ROM and for hands to decrease arthritic pain. STG Duration 3 weeks-08/20/23 (09/06/23: MET GOAL) Half-Way Goal (LTG) Improve knee strength to improve stair ambulation function to a step over step gait. 09/09/23: L knee pain rated 3 /10, R knee pain rated 6/10. 09/19/23: After Ultrasound, L knee pain rated 3.5/10, R knee pain rated 3.5/10. Able to amb stairs with step over step gait with use of railing. LTG Duration 12 wks-10/25/23 (09/19/23: MET GOAL) Two Impairment Bilateral thumb pain interferring functional activities and sleep at night. Impairment Franky thumb pain limiting ability to button tops & opening jars (pickle and Tide Pod). L>R thumb pain interrupting sleep at night. L thumb pain rated 7/10, R thumb pain rated 4/10. Short Term Goal (STG) Pt will be educated in HEP of pain management of self STM. 08/06/23: Education in self STM to thenar eminence of thumbs for pain relief. STG Duration 2 wks-08/13/23 (08/06/23: MET GOAL) Lab Rep Goal (LTG) Pt will be educated in mobility ex's of the hands to improve function of buttoning and opening jars (pickle, Tide pods). 08/13/23: I/S pt thumb strengthening (ext/flex). 08/20/23: I/S in distraction L thumb while performing opposition (thumb to MCP jt 5th digit) 08/27/23: instruction/demo/ peroformance MWM STMs and jt glides into thumb flexion and opposition, improved ROM reports with less achiness. LTG Duration 8 wks-09/27/23 (09/06/23: MET GOAL) One Impairment Pt lacks appropriate self care HEP. Short Term Goal (STG) Pt will be educated in a self care treatment of edema/pain management (contrast bath). 07/30/23: Education in contrast bath. 08/06/23: Education in self STM to thenar eminence of thumbs for pain relief. STG Duration 1 wk-08/06/23 (08/06/23: MET GOAL) Half-Way Goal (LTG) Pt will be educated in a modified gripping techniques to decrease pain with hand use . LTG Duration 8 wks-09/27/23 (09/06/23: MET GOAL) Assessment Summary Assessment Pt is a 77 yo female who was being seen for franky thumb pain in the thenar eminence due to arthritic mechanical changes at the CMC and MCP jts and bilateral knee pain interferring with functional ambulation on stairs. Her hand function has improved with pt able to now button her shirts and open jars and pt is happy with her progress and is on a HEP that she continues to do. She currently is only complaining of R knee pain that appears to be soft tissue related on the medial side (MCL or medial meniscus), with + Valgus Stress Test and Delfina test indicating a possible ligament and/or medial meniscus dysfunction. The pt is ready to be discharged to her HEP as she has home other home situations that she feels she must focus on. If her bilateral knee pain returns it would be appropriate to do further imaging of the R knee for internal derangement, and possible return to physical therapy for knee rehab. Physical Therapy Plan Frequency and Duration Frequency of Treatment 2x/Week Duration of treatment (weeks) 12 Plan of Care Start Date 07/30/23 Plan of Care End Date 10/25/23 Discharge Physical Therapy Discharge Reasons Goals Met Discharge Comments See assessment above. Thank you for your referral.
== END 2023-09-23 10:39 | disposition home or self-care (01) ==
LOC: PHYS 14:30
PROVIDERS: Family Provider Family Medicine; PCP Family Medicine; Referring Provider Physician Assistant; Visit Provider Physician Assistant
DX: M18.10 Unilateral primary osteoarthritis of first carpometacarpal joint, unspecified hand (principal); M17.0 Bilateral primary osteoarthritis of knee; M85.80 Other specified disorders of bone density and structure, unspecified site; Z78.0 Asymptomatic menopausal state
CPT/HCPCS: 97018; 97110; 97116; 97140; 97162; 97535

== ENCOUNTER → 2024-01-08 14:11 | Outpatient (CLI) | payer MEDICARE, SELFPAY ==
--- NOTE | 2024-01-08 14:13 | DI.RAD.S_ITS ---
PROCEDURE: XR KNEE RT 3V INDICATIONS: R knee pain TECHNIQUE: 3 views of the knee were acquired. COMPARISON: [facility], CR, XR KNEE ARTHRITIC SERIES , 01/02/2021, 11:34. FINDINGS: Bones: No acute fractures or dislocations. No suspicious bony lesions. A moderate to severe joint space narrowing is seen at the medial femorotibial compartment and the patellofemoral compartment with subchondral sclerosis, subchondral cystic changes, marginal osteophyte formation. There is moderate joint space narrowing of the lateral compartment. Small suprapatellar enthesophyte. Soft tissues: No joint effusion. No suspicious soft tissue calcifications. 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 Approved by: Candelario Slade M.D. on 01/08/2024 at 21:52
== END ==
PROVIDERS: Family Provider Family Medicine; PCP Family Medicine; Referring Provider Family Medicine; Visit Provider Family Medicine
DX: M17.0 Bilateral primary osteoarthritis of knee (principal); M25.561 Pain in right knee
CPT/HCPCS: 73562

== ENCOUNTER → 2024-05-29 09:30 | Outpatient (CLI) | payer MEDICARE, SELFPAY ==
--- NOTE | 2024-05-29 09:31 | DI.RAD.S_ITS ---
PROCEDURE: XR TIBIA FIBULA LT 2V INDICATIONS: swelling on anterior/medial L leg below knee TECHNIQUE: 2 views of the tibia and fibula were acquired. COMPARISON: None. FINDINGS: Bones: There are no osseous abnormalities Joints: Moderate patellofemoral and medial tibiofemoral degenerative change appreciated. Ankle mortise is normal. Soft tissues: Mild diffuse soft tissue swelling noted. IMPRESSION: Degeneration. Mild diffuse soft tissue swelling Dictated by: Augustin Whiting M.D. on 06/01/2024 at 9:32 Approved by: Augustin Whiting M.D. on 06/01/2024 at 9:32
== END ==
PROVIDERS: Family Provider Family Medicine; PCP Family Medicine; Referring Provider Physician Assistant; Visit Provider Physician Assistant
DX: R22.9 Localized swelling, mass and lump, unspecified (principal); M79.89 Other specified soft tissue disorders
CPT/HCPCS: 73590

== ENCOUNTER → 2024-06-08 16:33 | Outpatient (CLI) | payer MEDICARE, SELFPAY ==
--- NOTE | 2024-06-08 | DI.MG.S_ITS ---
BILATERAL DIGITAL SCREENING MAMMOGRAM 3D/2D WITH CAD WITH AUGMENTATION: 06/08/2024 CLINICAL: Routine screening. Comparison is made to exams dated: 06/05/2023 mammogram, 04/17/2022 mammogram, and 02/07/2021 mammogram - [facility]. There are scattered areas of fibroglandular density (category b / 25%-50% glandular tissue). Current study was also evaluated with a Computer Aided Detection (CAD) system. Right breast implant is stable and intact. There are benign post operative findings in both breasts. No significant masses, calcifications, or other findings are seen in either breast. There has been no significant interval change. IMPRESSION: BENIGN There is no mammographic evidence of malignancy. A 1 year screening mammogram is recommended. Based on the Tyrer Cuzick model (a risk assessment model) the patient's lifetime risk is 3.8% and her 10 year risk is 0.0%. According to the ACR, ACS, and NCCN guidelines, an annual breast MRI exam along with mammogram is recommended if the patient's lifetime risk is 20% or greater. This exam was interpreted at Station ID: [id number]. NOTE: For mammograms, a report in lay terms will be sent to the patient. Approximately 15% of breast malignancies will not be visualized mammographically. In the management of a palpable breast mass, a negative mammogram must not discourage biopsy of a clinically suspicious lesion. Electronically Signed By: Tiara Diaz M.D., Ph.D. antalie/marcela:06/09/2024 10:07:25 letter sent: Normal Exam ACR BI-RADS Category 2: Benign
== END ==
PROVIDERS: Family Provider Family Medicine; PCP Family Medicine; Referring Provider Family Medicine; Visit Provider Family Medicine
DX: Z12.31 Encounter for screening mammogram for malignant neoplasm of breast (principal)
CPT/HCPCS: 77063; 77067

== ENCOUNTER → 2025-06-29 14:05 | Outpatient (CLI) | payer MEDICARE, SELFPAY ==
--- NOTE | 2025-06-29 14:06 | DI.MG.S_ITS ---
MM screening mammo implant BI: 06/29/2025. BI-RADS: 2 CLINICAL: 79-year old female for bilateral screening mammogram. Tyrer-Cuzick lifetime risk of 2.5%. No personal or first-degree family history of breast cancer. The patient has a right breast implant. PRIOR EXAMS 06/08/2024, 06/05/2023, 04/17/2022, 02/07/2021. MAMMOGRAPHY TECHNIQUE: 2D and 3D (tomosynthesis) digital mammographic views obtained, with additional images as needed for full coverage. Current study was also evaluated with a Computer Aided Detection (CAD) system. DENSITY B. There are scattered areas of fibroglandular density. IMPLANTS Right: Breast implant present on the right. MAMMOGRAPHY FINDINGS Right: There are no suspicious masses, calcifications, or other findings in the breast. Left: No suspicious mass, asymmetry, microcalcification, or other abnormality seen. IMPRESSION: Right * No evidence of malignancy with benign findings. Left * No evidence of malignancy. RECOMMENDATIONS Bilateral * Annual screening mammography. OVERALL ASSESSMENT CATEGORY BI-RADS-2: Benign. The [employer] recommends annual screening mammography beginning at age 40 for women with average risk of breast cancer. ELECTRONICALLY SIGNED: Candy Santo M.D. on 06/29/2025 at 05:01:36 PM PT Interpreting Station ID: [id number]
== END ==
LOC: MAMMO 14:05
PROVIDERS: Family Provider Family Medicine; PCP Family Medicine; Referring Provider Family Medicine; Visit Provider Family Medicine
DX: Z12.31 Encounter for screening mammogram for malignant neoplasm of breast (principal); Z98.82 Breast implant status
CPT/HCPCS: 77063; 77067

== ENCOUNTER → 2025-07-14 08:08 | Outpatient (CLI) | payer MEDICARE, SELFPAY ==
--- NOTE | 2025-07-14 08:20 | EKG_ITS ---
[address] [id number] [address] [address] Test Date: 2025-07-14 Pat Name: Love Cm Department: Room: Gender: Female Bow Stapler: DIAMOND : 1945 Requested By: Order Number: [id number] Reading MD: Augustin Cristobal MD Measurements Intervals [place] Rate: 76 P: 58 MN: 166 QRS: 43 QRSD: 76 T: 52 QT: 372 QTc: 418 Interpretive Statements Normal sinus rhythm Electronically Signed On 07-14-2025 9:19:16 PST by Augustin Cristobal MD
== END ==
PROVIDERS: Family Provider Family Medicine; PCP Family Medicine; Referring Provider Physician Assistant; Visit Provider Physician Assistant
DX: Z01.818 Encounter for other preprocedural examination (principal)
CPT/HCPCS: 93005